=== PATIENT | male | born 1945 | race Caucasian/White ===

== ENCOUNTER → 2022-11-23 11:05 | Outpatient (CLI) | payer MEDICARE, SELFPAY ==
[2022-11-23 11:56] LABS: Basophils % 0.5 % (0.1-2.0); Eosinophils # 0.5 K/mm3 (0.0-0.4); Hematocrit 49.4 % (42.0-52.0); Hemoglobin 15.8 g/dL (14.1-18.0); Lymphocytes # 2.2 K/mm3 (0.7-4.5); Lymphocytes % 27.5 % (10-50); Mean Corpuscular HGB Conc 31.9 g/dL (31.8-35.4); Mean Corpuscular Hemoglobin 31.2 pg (27.0-31.2); Mean Corpuscular Volume 97.8 fl (80-94); Mean Platelet Volume 8.7 fl (7.4-10.4); Monocytes # 0.5 K/mm3 (0.1-1.0); Monocytes % 6.5 % (1.7-9.3); Neutrophils # 4.9 K/mm3 (1.8-7.8); Neutrophils % 59.6 % (37.0-80.0); Platelet Count 253 K/mm3 (142-424); Red Blood Count 5.05 M/mm3 (4.60-6.20); Red Cell Distribution Width 13.9 % (11.5-17.5); White Blood Count 8.2 K/mm3 (4.8-10.8)
[2022-11-23 12:17] LABS: Alanine Aminotransferase 16 U/L (12-78); Albumin Level 4.1 g/dl (3.5-5.0); Albumin/Globulin Ratio 1.6 (1.1-1.8); Alkaline Phosphatase 86 U/L (38-126); Anion Gap 9.7 mEq/L (5-15); Aspartate Amino Transferase 25 U/L (17-59); Bilirubin,Total 0.8 mg/dl (0.2-1.3); Blood Urea Nitrogen 22 mg/dl (9-20); Calcium 9.5 mg/dl (8.4-10.2); Carbon Dioxide 28 mmol/L (22.0-30.0); Chloride 105 mmol/L (98-107); Chol/HDL Ratio 3.6 (1-3.5); Cholesterol 265 mg/dl (140-200); Estimated Glomerular Filt Rate 72 ml/min (>60); GFR (African American) 87 ML/MIN (>60); Globulin 2.6 g/dL (1.3-3.2); Glucose 104 mg/dl (74-100); HDL Cholesterol 74 mg/dl (40-60); Potassium 4.7 mmoL/L (3.5-5.1); Sodium 138 mmol/L (136-145); Total Protein,Serum 6.7 g/dl (6.3-8.2); Triglycerides 81 mg/dl (30-150); VLDL Cholesterol 16 mg/dL (0-40)
[2022-11-23 12:29] LABS: Direct LDL Cholesterol 151.59 mg/dL (100-129)
[2022-11-23 12:34] LABS: 25-OH Vitamin D, Total 29.9 ng/mL (30-100)
[2022-11-23 12:48] LABS: Thyroid Stimulating Hormone 2.01 uIU/mL (0.465-4.68)
[2022-11-23 13:07] LABS: Vitamin B12 246 pg/mL (239-931)
[2022-11-23 16:10] LABS: Folate 8.07 ng/mL
[2022-11-23 21:38] LABS: Hemoglobin A1C 5.7 % (4.0-6.0)
[2022-11-24 12:46] LABS: PSA, Free 0.52 ng/mL
== END ==
PROVIDERS: PCP Physician Assistant; Visit Provider Physician Assistant
DX: Z00.00 Encounter for general adult medical examination without abnormal findings (principal); R41.3 Other amnesia; R32 Unspecified urinary incontinence; E55.9 Vitamin D deficiency, unspecified; R73.09 Other abnormal glucose; E78.00 Pure hypercholesterolemia, unspecified
CPT/HCPCS: 36415; 80053; 80061; 82306; 82607; 82746; 83036; 84153; 84154; 84443; 85025

== ENCOUNTER → 2022-12-04 14:18 | Outpatient (CLI) | payer MEDICARE, SELFPAY ==
--- NOTE | 2022-12-04 14:21 | MR_ITS ---
FINAL REPORT TECHNIQUE: Multiplanar and multisequence imaging of the brain was obtained without contrast. CLINICAL HISTORY: MEMORY LOSS comes and goes x 6 months COMPARISON: None FINDINGS: There is global atrophy. There is no mass effect or midline shift. Small foci of periventricular and subcortical white matter are nonspecific. The ventricles are symmetric without hydrocephalus. The cerebellum and brainstem have an unremarkable appearance. There are no areas of restricted diffusion on diffusion weighted images to suggest acute infarct. Soft tissues are without acute abnormality. IMPRESSION: No acute intracranial abnormality. Nonspecific T2 abnormality within the periventricular and subcortical white matter. Differential considerations include changes of chronic small vessel ischemia and demyelinating disease. Reviewed, Interpreted and Dictated by Deya Khoury MD Transcribed by Shweta Brandon Authenticated and [facility]
--- NOTE | 2022-12-04 15:00 | CT_ITS ---
FINAL REPORT TECHNIQUE: Axial images were obtained from the lung apex to the mid abdomen by computed tomography. This study was performed with techniques to keep radiation doses as low as reasonably achievable (ALARA). Individualized dose reduction techniques using automated exposure control or adjustment of mA and/or kV according to the patient's size were employed. CLINICAL HISTORY: LUNG SCREENING SMOKES 1 PK PER DAY X 50 YRS CAD FINDINGS: CHEST CT LOW DOSE CTDI vol (mGy): 2.90 DLP (mGy-cm): 123.76 There is no axillary adenopathy. There is no hilar or mediastinal adenopathy. The heart is normal in size. There is no pericardial or pleural effusion. Lung window images demonstrate no suspicious infiltrate or nodule. Note is made of emphysema. Limited images of the upper abdomen there is a hypodense small left renal lesion. There are bilateral nonobstructing renal stones. IMPRESSION: Lung RADS category 1 S. Recommend 12 month follow-up low-dose chest CT. Modifier S: Small left renal lesion and bilateral renal stones. Reviewed, Interpreted and Dictated by Deya Khoury MD Transcribed by Lauren Hanna Authenticated and [facility]
== END ==
PROVIDERS: PCP Physician Assistant; Visit Provider Physician Assistant
DX: Z87.891 Personal history of nicotine dependence (principal); Z12.2 Encounter for screening for malignant neoplasm of respiratory organs; R41.3 Other amnesia
CPT/HCPCS: 70551; 71271

== ENCOUNTER → 2022-12-29 09:49 | Outpatient (CLI) | payer MEDICARE, SELFPAY ==
--- NOTE | 2022-12-29 09:52 | CT_ITS ---
FINAL REPORT CLINICAL HISTORY: LEFT RENAL MASS COMPARISON: Prior CT of 12/04/2022 FINDINGS: CT OF THE ABDOMEN AND PELVIS WITH CONTRAST Axial CT images of the abdomen and pelvis were obtained after the administration of IV contrast. Coronal and sagittal reformatted images were also obtained and reviewed. This study was performed with techniques to keep radiation doses as low as reasonably achievable (ALARA). Individualized dose reduction techniques using automated exposure control or adjustment of mA and/or kV according to the patient's size were employed. Abdomen: Moderate changes of emphysema are present. There is mild scarring in the lung bases.. The heart is normal in size. The liver has an unremarkable appearance, without evidence of mass or biliary ductal dilatation. The gallbladder has been surgically resected. The spleen is unremarkable. No adrenal mass is present. The pancreas has an unremarkable appearance. There are small nonobstructing bilateral renal stones seen. There are bilateral renal masses, largest on the right measuring 36 mm, largest on the left measuring 18 mm, most consistent in appearance with simple cysts. No evidence of hydronephrosis is seen. Moderate vascular calcifications are present. There is no free fluid or adenopathy. No mass or abnormal fluid collection is seen. Pelvis: The appendix is not well-visualized. The urinary bladder is unremarkable. No inflammatory process is seen. There is no evidence of mass or adenopathy. There is no evidence of bowel obstruction. There is severe sigmoid diverticulosis present without evidence of acute inflammation. There is a moderate to large stool burden. IMPRESSION: Bilateral nonobstructing renal stones. There are also bilateral renal cysts, the largest on the right side measuring 36 mm in size. Diverticulosis of the sigmoid colon with a moderate to large stool burden. Reviewed, Interpreted and Dictated by Claude Washington III, MD Transcribed by Shweta Brandon Authenticated and [facility]
== END ==
PROVIDERS: PCP Physician Assistant; Visit Provider Physician Assistant
DX: N28.89 Other specified disorders of kidney and ureter (principal)
CPT/HCPCS: 74177; Q9967

== ENCOUNTER 2023-03-26 10:04 | Day surgery (SDC) | payer MEDICARE, SELFPAY ==
[2023-03-26] VITALS (7 sets, daily range): BP systolic 94–151; BP diastolic 64–90; PULSE 62–73; RESP 14–18; TEMP 36.3–36.8; O2SAT 93–95; BMI 20.7
--- NOTE | 2023-03-26 11:10 | P.PNANES_ITS ---
[facility] Disclaimer: The information contained in this section may have been updated after the patient was seen, as this information can be updated by other users. Medical History (Updated 03/26/23 @ 10:43 by Amna Kelley RN) History of heart attack Loss of vision Surgical History (Updated 03/26/23 @ 10:43 by Amna Kelley RN) History of back surgery History of coronary artery stent placement Family History (Updated 03/26/23 @ 10:43 by Amna Kelley RN) Other Family history of diabetes mellitus type II Family history of myocardial infarction Social History (Updated 03/26/23 @ 10:43 by Amna Kelley RN) Smoking Status: Current every day smoker alcohol intake: never substance use type: denies use current occupational status: retired Travel in the last 8 weeks: None caregiver/support person: Yes household members: spouse housing: house lives independently: Yes marital status: [facility] Anesthesia Checklist Patient Identification Patient Identification: Arm Band Structural Data Admitted From: Home Planned Operative Procedure/s: Colonoscopy Consent for Planned Operative Procedure(s) Verified: Yes Verified Documents: Surgical Consent and History and Physical NPO Status Verified Time NPO: 00:00 Additional verifications Anesthesia Reactions: No Airway Assessment Mallampati Score:: Class II C-Spine Mobility Assessed: Yes TMJ Mobility Assessed: Yes Dentition: Good Dentition Neurological Assessment Level of Consciousness: Awake and Alert Anesthesia Plan Anesthesia Risk discussed: Yes Anesthesia Plan: Verified ASA Class: III Anesthesia Type: MAC
--- NOTE | 2023-03-26 13:13 | P.PCN_ITS ---
Procedure: Date: 03/26/23 Patient Date of :: 1945 Procedure Performed:: Total colonoscopy with polypectomy using snare and biopsy forceps Indications:: Patient is a 77-year-old male. He is somewhat of a poor historian. He was scheduled for screening colonoscopy. Performing Provider:: Claude Gilbert MD Referring Provider:: Priyank Vallejo MD Sedation:: MAC sedation Procedure:: Patient history was obtained and appropriate physical examination was performed. Patient's medications and allergies were reviewed. Informed consent was obtained after explaining the benefits, alternatives, and risks of the procedure including, but not limited to, bleeding, perforation, missed lesions, and adverse reaction to anesthesia medications. Patient was transported to endoscopy procedure room. Patient was connected to monitoring devices. Throughout the procedure the patient's blood pressure, pulse, and oxygen saturations were monitored continuously. Patient identification and planned procedure were verified by the staff. Patient was positioned in lateral decubitus position. Digital anorectal exam was performed. Variable stiffness Olympus colonoscope was inserted and advanced under direct visualization to the cecum. Adequacy of the colonic preparation was noted. The colonoscope was advanced a short distance into the terminal ileum. The colonoscope was then slowly withdrawn while carefully examining the color, texture, anatomy, and integrity of the mucosoa circumferentially. Within the rectum retroflexion was performed. Colonoscope was then withdrawn. . There was some particulate liquid stool within the colon. Throughout the colon there was evidence of possible nonspecific diffuse colitis. In the cecum there were several diminutive polyps removed with cold biopsy forceps and sent as cecal polyp x3. There was a moderately large irregular flat sessile lesion. Eleview was injected circumferentially submucosally to raise the lesion. Attempt was made to remove this using the 13 mm hot snare but this was unsuccessful. It was then removed in a piecemeal fashion using 9 mm cold cutting snare. Ultimately it appeared as though the lesion had been removed in its entirety. As the colonoscope was withdrawn careful surveillance was carried out. Several biopsies were obtained differentiating right and left colon due to the findings of possible colitis. In the sigmoid colon there was appreciable sigmoid diverticulosis. . Findings:: Fair prep Possible diffuse colitis, biopsied Diminutive cecal polyp x3 Moderately large flat sessile cecal lesion Appreciable sigmoid diverticulosis Recommendations:: Follow-up colonoscopy to be pending pathology. Likely will need repeat col onoscopy in 6 to 12 months to evaluate early recurrence and complete removal of the large sessile cecal lesion. Complications:: None immediately apparent Estimated blood obtained (mL): 2 Colonoscopy Component Colonoscopy Component Was a colonoscopy performed during today's procedure?: Yes Recommended follow up colonoscopy of at least 10 years?: No If no, follow up colonoscopy recommended in ___ years?: 1 Reason for not recommending >/= 10 yr follow-up interval?: See above
--- NOTE | 2023-03-26 14:08 | EXP.ANES.I ---
[facility] Anesthesia Record Part I Anesthesia Record I Intake, IV Amount: 700 Hydration: Adequate Estimated blood loss (mL): 1 Urine output (mL): 0 Blood Products used (#): none Blood Pressure: 94/64 SaO2: 93 Pulse Rate: 73 Airway Patency: Patent Respiratory Rate: 16 Temperature: 97.4 F Patient is:: Awake, Drowsy and Stable Stable to PACU at:: 13:18
== END 2023-03-26 13:50 | disposition home or self-care (01) ==
PROVIDERS: PCP Physician Assistant; Visit Provider Surgery
PROC: 0DJD8ZZ Inspection of Lower Intestinal Tract, Via Natural or Artificial Opening Endoscopic (ICD-10-PCS; CPT 45380; principal; 2023-03-26 12:30)
DX: Z12.11 Encounter for screening for malignant neoplasm of colon (principal); K63.89 Other specified diseases of intestine; D12.0 Benign neoplasm of cecum; K57.30 Diverticulosis of large intestine without perforation or abscess without bleeding
CPT/HCPCS: 45380; 45385; 88305

== ENCOUNTER 2023-12-11 12:45 | Emergency (ER) | payer MEDICARE, SELFPAY ==
[2023-12-11 12:46] VITALS: BP 164/101; PULSE 65; RESP 18; TEMP 36.7; O2SAT 98; BMI 21.2
--- NOTE | 2023-12-11 12:47 | ECG_ITS ---
APPROVED REPORT Exam: Resting ECG HR:63 bpm ECG Measurements Heart Rate 63 AXES NJ 167 P 78 QRSd 85 QRS 73 QT 400 T 77 QTc 406 Conclusion Sinus rhythm Electronically signed by : KATHY LAI, 12/11/2023 15:22:16
[2023-12-11 12:50] VITALS: BMI 21.2
--- NOTE | 2023-12-11 12:50 | XR_ITS ---
PROCEDURE INFORMATION: Exam: XR Chest Exam date and time: 12/11/2023 1:03 PM Age: 78 years old Clinical indication: Other: Chest pain; Additional info: Cp TECHNIQUE: Imaging protocol: Radiologic exam of the chest. Views: 1 view. COMPARISON: CT LUNG SCREENING 12/04/2022 3:08 PM FINDINGS: Tubes, catheters and devices: EKG leads. Lungs: Emphysematous lungs. No consolidation. Pleural spaces: Unremarkable. No pleural effusion. No pneumothorax. Heart/Mediastinum: Unremarkable. No cardiomegaly. Vasculature: Ectatic aorta. Atherosclerosis. Bones/joints: Degenerative changes of the spine. IMPRESSION: No acute findings.
--- NOTE | 2023-12-11 12:55 | PC.NURSE ---
Dr. Ross at bedside
[2023-12-11 12:59] LABS: Basophils # 0.1 K/mm3 (0-0.2); Basophils % 1.1 % (0.1-2.0); Eosinophils # 0.3 K/mm3 (0.0-0.4); Eosinophils % 4.4 % (0.1-12.0); Hematocrit 46.3 % (42.0-52.0); Hemoglobin 16.4 g/dL (14.1-18.0); Lymphocytes # 2.5 K/mm3 (0.7-4.5); Lymphocytes % 32.9 % (10-50); Mean Corpuscular HGB Conc 35.4 g/dL (31.8-35.4); Mean Corpuscular Hemoglobin 36.7 pg (27.0-31.2); Mean Corpuscular Volume 103.8 fl (80-94); Mean Platelet Volume 8.8 fl (7.4-10.4); Monocytes # 0.5 K/mm3 (0.1-1.0); Monocytes % 5.8 % (1.7-9.3); Neutrophils # 4.3 K/mm3 (1.8-7.8); Neutrophils % 55.9 % (37.0-80.0); Platelet Count 221 K/mm3 (142-424); Red Blood Count 4.46 M/mm3 (4.60-6.20); Red Cell Distribution Width 14.4 % (11.5-17.5); White Blood Count 7.7 K/mm3 (4.8-10.8)
[2023-12-11 13:05] LABS: Albumin Level 4.1 g/dl (3.5-5.0); Chloride 108 mmol/L (98-107); Potassium 4.5 mmoL/L (3.5-5.1); Sodium 142 mmol/L (136-145)
[2023-12-11 13:07] LABS: Activated Partial Thrombo Time 27.3 seconds (22.8-30.6); Alanine Aminotransferase 17 U/L (12-78); Aspartate Amino Transferase 33 U/L (17-59); Blood Urea Nitrogen 21 mg/dl (9-20); Creatinine Clearance Estimated 54 mL/min (50-200); Estimated Glomerular Filt Rate 81 ml/min (>60); GFR (African American) 98 ML/MIN (>60)
--- NOTE | 2023-12-11 13:07 | ED_ITS ---
Discharge Plan Disposition Patient Disposition: Home, Self-Care Condition: Good Chief Complaint: Chest Pain Prescriptions Prescriptions: No Action aspirin [Aspir-81] 81 mg Tablet,Delayed Release (Dr/Ec) 81 mg PO DAILY coenzyme Q10 [CoQ-10] 100 mg Capsule 100 mg PO DAILY memantine [Namenda] 5 mg Tablet 5 mg PO HS Referrals Follow up/Referrals: Sid Becker MD [Staff Physician] - See instructions Priyank Vallejo MD [Primary Care Provider] - See instructions Activity Restrictions/Add. Instructions Additional Instructions/Restrictions: Call your family doctor to establish care for this visit to the emergency department and schedule follow-up within 48 hours to ensure improvement. If you have any worsening of your condition or any other concerning signs or symptoms, return to the emergency department or your primary care doctor for further evaluation. Contact cardiology to schedule appointment for follow-up for further workup. Clinical Impressions Clinical Impression: Chest pain Instructions Patient Instructions: DI for Atypical Chest Pain Print Language Print Language: Cypriot Discharge ED Provider: Mya Russell HPI <Joel Ross MD - Last Filed: 12/11/23 14:29> General Chief Complaint: Chest Pain Stated Complaint: chest pain Time Seen by Provider: 12/11/23 12:50 Mode of Arrival: Wheelchair Source of Information: Spouse Limitations: Altered Mental Status Description of Symptoms (Recalled from ER Triage Doc. by RN): chest pain. pt has alzheimers. denies pain now History of Present Illness HPI narrative: Please note that above description of symptoms, in this electronic medical record under categorization of recalled from ER triage doctor by RN are reflective of an initial nursing assessment, however, is not reflective of my full history and physical exam that was personally taken and clarified. Consequentially, this preceding description of symptoms, which may include the patient's categorized chief complaint in the EMR, do not reflect my personal clinical impression, and the ultimate description of history of present illness and patient stated complaints should be deferred to this section of the note. Unless stated otherwise or congruent with this section of the note, additional signs, symptoms, or incongruence should be interpreted as inaccurate with my clinical impression. Related Data Home Medications ?Medication ?Instructions ?Recorded ?Confirmed aspirin 81 mg tablet,delayed 81 mg PO DAILY Blood Thinner 03/26/23 04/06/23 release coenzyme Q10 100 mg capsule 100 mg PO DAILY Supplement 03/26/23 04/06/23 (CoQ-10) memantine 5 mg tablet (Namenda) 5 mg PO HS memory 03/26/23 04/06/23 Allergies Allergy/AdvReac Type Severity Reaction Status Date / Time No Known Allergies Allergy Verified 04/06/23 11:20 PFS <Joel Ross MD - Last Filed: 12/11/23 14:29> PFS Disclaimer: The information contained in this section may have been updated after the patient was seen, as this information can be updated by other users. Medical History (Updated 12/11/23 @ 14:28 by Joel Ross MD) History of heart attack Loss of vision Surgical History (Updated 04/06/23 @ 11:21 by DINAH Torres) History of colonoscopy History of back surgery History of coronary artery stent placement Family History Other Family history of diabetes mellitus type II Family history of myocardial infarction Social History Smoking Status: Current every day smoker alcohol intake: never substance use type: denies use current occupational status: retired Travel in the last 8 weeks: None caregiver/support person: Yes household members: spouse housing: house lives independently: Yes marital status: <Joel Ross MD - Last Filed: 12/11/23 14:29> ROS Obtained: Yes All systems reviewed & no additional complaints except as documented Physical Exam <Joel Ross MD - Last Filed: 12/11/23 14:29> General General appearance: alert Neck Neck exam: Present trachea midline Chest Chest inspection: Present normal inspection and symmetric chest wall rise Respiratory Respiratory exam: Present normal lung sounds bilaterally; Absent respiratory distress, wheezes, stridor, accessory muscle use or prolonged expiratory phase Cardiovascular Cardiovascular exam: Present regular rate, normal rhythm and other (Pulses equal and symmetric in upper and lower extremities) Extremities Exam Extremities exam: Absent edema Neurological Exam Neurological exam: Present alert, oriented X3 and CN II-XII intact Skin Skin exam: Present warm and dry; Absent cyanosis, diaphoresis or pallor HEART Score <Joel Ross MD - Last Filed: 12/11/23 14:29> HEART Score HEART Score assessment performed?: Yes History (anamnesis): Moderately suspicious ECG: Normal Age: >65 years Risk factors: 1-2 risk factors Troponin: </= normal limit HEART Score: 4 <Mya Russell MD - Last Filed: 12/11/23 16:44> HEART Score HEART Score: 4 Critical Care <Joel Ross MD - Last Filed: 12/11/23 14:29> Critical Care Time Critical Care Time: No Medical Decision Making <Joel Ross MD - Last Filed: 12/11/23 14:29> Medical Records Medical records reviewed: Yes I reviewed the patient's medical records. José Miguel Inquiry Pt receiving controlled substance: No José Miguel was queried for this patient: No Vital Signs Vital Signs: 12/11/23 12:46 12/11/23 13:52 12/11/23 15:00 Temperature 98.1 F Temperature Source Oral Pulse Rate 60 62 Pulse Rate [Right] 65 Respiratory Rate 18 17 21 Blood Pressure 154/89 H 159/100 H Blood Pressure [Right Arm] 164/101 H Blood Pressure Mean [Right Arm] 122 02 Sat by Pulse Oximetry 98 97 97 Oxygen Delivery Method Room Air 12/11/23 15:31 12/11/23 16:00 Temperature Temperature Source Pulse Rate 58 L Pulse Rate [Right] Respiratory Rate 16 16 Blood Pressure 187/96 H 170/93 H Blood Pressure [Right Arm] Blood Pressure Mean [Right Arm] 02 Sat by Pulse Oximetry 99 99 Oxygen Delivery Method Room Air Lab Data Labs: Lab Results 12/11/23 12:49: WBC 7.7, RBC 4.46 L, Hgb 16.4, Hct 46.3, MCV 103.8 H, MCH 36.7 H , MCHC 35.4, RDW 14.4, Plt Count 221, MPV 8.8, Neut % (Auto) 55.9, Lymph % (Auto) 32.9, Yancey % (Auto) 5.8, Eos % (Auto) 4.4, Baso % (Auto) 1.1, Neut # (Auto) 4.3, Lymph # (Auto) 2.5, Yancey # (Auto) 0.5, Eos # (Auto) 0.3, Baso # (Auto) 0.1, APTT 27.3, Sodium 142, Potassium 4.5, Chloride 108 H, Carbon Dioxide 31 H, Anion Gap 7.5, BUN 21 H, Creatinine 0.90, Estimated Creat Clear 54, Estimated GFR 81, Est GFR ( Amer) 98, Glucose 111 H, Calcium 9.3, Total Bilirubin 0.7, AST 33, ALT 17, Alkaline Phosphatase 64, Troponin I < 0.01, NT-Pro-B Natriuret Pep 337, Total Protein 7.0, Albumin 4.1, Globulin 2.9, Albumin/Globulin Ratio 1.4, Lipase 33 12/11/23 15:30: Troponin I < 0.01 12/11/23 12:49 12/11/23 12:49 Response Orders (Tests/Meds): ED MEDICATIONS Generic Name Dose Route Start Last Admin Trade Name Freq PRN Reason Stop Dose Admin Nitroglycerin 0.4 mg 12/11/23 13:01 Nitroglycerin 0.4mg Sl Tablet SL 01/10/24 13:00 Q5MINP PRN Chest Pain Sodium Chloride 8 ml 12/11/23 12:51 Sodium Chloride 0.9% 10ml Vial IV 01/10/24 12:50 NEEDED PRN dilute pepcid Discontinued Medications Generic Name Dose Route Start Last Admin Trade Name Freq PRN Reason Stop Dose Admin Aspirin 325 mg 12/11/23 12:51 12/11/23 13:22 Aspirin 325mg Tablet PO 12/11/23 12:52 325 mg ONCE ONE Administration Famotidine 20 mg 12/11/23 12:51 12/11/23 13:22 Famotidine 20mg/2ml Vial IV 12/11/23 12:52 20 mg ONCE ONE Administration Lactated Ringer's 500 mls @ 500 mls/hr 12/11/23 12:52 12/11/23 13:22 Lactated Ringer's 500ml IV 12/11/23 13:51 500 mls/hr .Q1H ONE Administration Ketorolac Tromethamine 15 mg 12/11/23 12:51 12/11/23 13:22 Ketorolac 30mg/Ml Vial IV 12/11/23 12:52 15 mg ONCE ONE Administration Prochlorperazine Edisylate 10 mg 12/11/23 12:51 12/11/23 13:22 Prochlorperazine 10mg/2ml Vial IV 12/11/23 12:52 10 mg ONCE ONE Administration ORDERS Category Date Time Status XR chest portable Stat Exams 07/27/24 12:50 Completed Complete Blood Count Auto Diff Stat Lab 12/11/23 12:49 Completed Comprehensive Metabolic Panel Stat Lab 12/11/23 12:49 Completed Lipase Stat Lab 12/11/23 12:49 Completed NT Pro Brain Natriuretic Pep. Stat Lab 12/11/23 12:49 Completed PTT [Activated Partial Thrombo Time] Stat Lab 12/11/23 12:49 Completed Troponin I Q3H Lab 12/11/23 15:30 Completed Troponin I Q3H Lab 12/11/23 19:00 Ordered Troponin I Stat Lab 12/11/23 12:49 Completed 12-lead EKG Request [ECG Request] Stat Y 12/11/23 12:51 Ordered MDM Narrative Medical Decision Narrative: 78-year-old male history of dementia, ACS, VA status post stenting currently on daily aspirin presenting with chest pain. Patient states that this felt similar to his previous heart attack, but felt lower in his chest. Chest pains are about 30 minutes prior to arrival while he was sitting still at rest. Radiated from his substernal area to the left side of his chest. No shortness of breath, nausea, vomiting, diaphoresis, neurologic deficits, or any other concerns. By the time he arrived to the emergency department, states that pain is almost entirely gone, but still there. History was obtained via conversation with patient and family. On arrival, patient hemodynamically stable, alert, oriented x4, appropriate, GCS 15, moving all extremities spontaneously, pupils equal and reactive to light. Full physical exam performed and significant for very well- appearing male who is in no acute distress. He is hypertensive, nontachycardic. Lungs are clear to auscultation bilaterally, cardiac exam without murmurs, gallops, rubs. No lower extremity edema. Pulses equal and symmetric in upper and lower extremities. Differential includes ACS, VA, pneumothorax, GERD, esophagitis, hypertensive urgency versus emergency, among others. Patient was given aspirin, Toradol, Pepcid, nitroglycerin for symptomatic management and correction of underlying abnormalities. Patient placed on continuous cardiac monitoring and continuous pulse ox with initial blood pressure 164/101, heart rate 65, saturation 98% on room air. Independent interpretation of EKG shows sinus rhythm 63 beats a minute without ST or T wave changes concerning for acute ischemia. NC 167, QRS 65, QTc 4 6. Workup independently interpreted and significant for nonactionable CBC or chemistry. Coags normal. Patient's initial troponin undetectably low and BNP negative. Chest x-ray without acute cardiopulmonary space disease on independent interpretation. See radiology read for full review of final results. Heart score 4. Patient was placed in observation beginning at 1 PM in order to rule out evolving VA with delta troponin given acuity of symptoms and determine need for admission versus home-going. The patient was provided serial exams, medications, cardiac monitoring while awaiting results. Prior to results of final troponin, care handed off to oncoming physician. Lawn Sprinkler Servicer disclaimer Much of this encounter note is an electronic wood shingle roofer spoken language to printed text. Electronic wood shingle roofer of the spoken language may permit errors. Although I have reviewed the note, some errors may still exist. <Mya Russell MD - Last Filed: 12/11/23 16:44> Vital Signs Vital Signs: 12/11/23 12:46 12/11/23 13:52 12/11/23 15:00 Temperature 98.1 F Temperature Source Oral Pulse Rate 60 62 Pulse Rate [Right] 65 Respiratory Rate 18 17 21 Blood Pressure 154/89 H 159/100 H Blood Pressure [Right Arm] 164/101 H Blood Pressure Mean [Right Arm] 122 02 Sat by Pulse Oximetry 98 97 97 Oxygen Delivery Method Room Air 12/11/23 15:31 12/11/23 16:00 Temperature Temperature Source Pulse Rate 58 L Pulse Rate [Right] Respiratory Rate 16 16 Blood Pressure 187/96 H 170/93 H Blood Pressure [Right Arm] Blood Pressure Mean [Right Arm] 02 Sat by Pulse Oximetry 99 99 Oxygen Delivery Method Room Air Lab Data Lab results reviewed: Yes I reviewed the patient's lab results. Labs: Lab Results 12/11/23 12:49: WBC 7.7, RBC 4.46 L, Hgb 16.4, Hct 46.3, MCV 103.8 H, MCH 36.7 H , MCHC 35.4, RDW 14.4, Plt Count 221, MPV 8.8, Neut % (Auto) 55.9, Lymph % (Auto) 32.9, Yancey % (Auto) 5.8, Eos % (Auto) 4.4, Baso % (Auto) 1.1, Neut # (Auto) 4.3, Lymph # (Auto) 2.5, Yancey # (Auto) 0.5, Eos # (Auto) 0.3, Baso # (Auto) 0.1, APTT 27.3, Sodium 142, Potassium 4.5, Chloride 108 H, Carbon Dioxide 31 H, Anion Gap 7.5, BUN 21 H, Creatinine 0.90, Estimated Creat Clear 54, Estimated GFR 81, Est GFR ( Amer) 98, Glucose 111 H, Calcium 9.3, Total Bilirubin 0.7, AST 33, ALT 17, Alkaline Phosphatase 64, Troponin I < 0.01, NT-Pro-B Natriuret Pep 337, Total Protein 7.0, Albumin 4.1, Globulin 2.9, Albumin/Globulin Ratio 1.4, Lipase 33 12/11/23 15:30: Troponin I < 0.01 Response Orders (Tests/Meds): ED MEDICATIONS Generic Name Dose Route Start Last Admin Trade Name Freq PRN Reason Stop Dose Admin Nitroglycerin 0.4 mg 12/11/23 13:01 Nitroglycerin 0.4mg Sl Tablet SL 01/10/24 13:00 Q5MINP PRN Chest Pain Sodium Chloride 8 ml 12/11/23 12:51 Sodium Chloride 0.9% 10ml Vial IV 01/10/24 12:50 NEEDED PRN dilute pepcid Discontinued Medications Generic Name Dose Route Start Last Admin Trade Name Freq PRN Reason Stop Dose Admin Aspirin 325 mg 12/11/23 12:51 12/11/23 13:22 Aspirin 325mg Tablet PO 12/11/23 12:52 325 mg ONCE ONE Administration Famotidine 20 mg 12/11/23 12:51 12/11/23 13:22 Famotidine 20mg/2ml Vial IV 12/11/23 12:52 20 mg ONCE ONE Administration Lactated Ringer's 500 mls @ 500 mls/hr 12/11/23 12:52 12/11/23 13:22 Lactated Ringer's 500ml IV 12/11/23 13:51 500 mls/hr .Q1H ONE Administration Ketorolac Tromethamine 15 mg 12/11/23 12:51 12/11/23 13:22 Ketorolac 30mg/Ml Vial IV 12/11/23 12:52 15 mg ONCE ONE Administration Prochlorperazine Edisylate 10 mg 12/11/23 12:51 12/11/23 13:22 Prochlorperazine 10mg/2ml Vial IV 12/11/23 12:52 10 mg ONCE ONE Administration ORDERS Category Date Time Status XR chest portable Stat Exams 12/11/23 12:50 Completed Complete Blood Count Auto Diff Stat Lab 12/11/23 12:49 Completed Comprehensive Metabolic Panel Stat Lab 12/11/23 12:49 Completed Lipase Stat Lab 12/11/23 12:49 Completed NT Pro Brain Natriuretic Pep. Stat Lab 12/11/23 12:49 Completed PTT [Activated Partial Thrombo Time] Stat Lab 12/11/23 12:49 Completed Troponin I Q3H Lab 12/11/23 15:30 Completed Troponin I Q3H Lab 12/11/23 19:00 Ordered Troponin I Stat Lab 12/11/23 12:49 Completed 12-lead EKG Request [ECG Request] Stat Y 12/11/23 12:51 Ordered MDM Narrative Medical Decision Narrative: 78-year-old male history of dementia, ACS, VA status post stenting currently on daily aspirin presenting with chest pain. Patient states that this felt similar to his previous heart attack, but felt lower in his chest. Chest pains are about 30 minutes prior to arrival while he was sitting still at rest. Radiated from his substernal area to the left side of his chest. No shortness of breath, nausea, vomiting, diaphoresis, neurologic deficits, or any other concerns. By the time he arrived to the emergency department, states that pain is almost entirely gone, but still there. History was obtained via conversation with patient and family. On arrival, patient hemodynamically stable, alert, oriented x4, appropriate, GCS 15, moving all extremities spontaneously, pupils equal and reactive to light. Full physical exam performed and significant for very well- appearing male who is in no acute distress. He is hypertensive, nontachycardic. Lungs are clear to auscultation bilaterally, cardiac exam without murmurs, gallops, rubs. No lower extremity edema. Pulses equal and symmetric in upper and lower extremities. Differential includes ACS, VA, pneumothorax, GERD, esophagitis, hypertensive urgency versus emergency, among others. Patient was given aspirin, Toradol, Pepcid, nitroglycerin for symptomatic management and correction of underlying abnormalities. Patient placed on continuous cardiac monitoring and continuous pulse ox with initial blood pressure 164/101, heart rate 65, saturation 98% on room air. Independent interpretation of EKG shows sinus rhythm 63 beats a minute without ST or T wave changes concerning for acute ischemia. NC 167, QRS 65, QTc 4 6. Workup independently interpreted and significant for nonactionable CBC or chemistry. Coags normal. Patient's initial troponin undetectably low and BNP negative. Chest x-ray without acute cardiopulmonary space disease on independent interpretation. See radiology read for full review of final results. Heart score 4. Patient was placed in observation beginning at 1 PM in order to rule out evolving VA with delta troponin given acuity of symptoms and determine need for admission versus home-going. The patient was provided serial exams, medications, cardiac monitoring while awaiting results. Prior to results of final troponin, care handed off to oncoming physician. Lawn Sprinkler Servicer disclaimer Much of this encounter note is an electronic wood shingle roofer spoken language to printed text. Electronic wood shingle roofer of the spoken language may permit errors. Although I have reviewed the note, some errors may still exist. I assumed care of patient from Dr. Ross pending repeat troponin. Repeat troponin remains negative and undetectable. Patient remains asymptomatic at present. Discussed reassuring results with patient and family and recommended close follow-up with PCP and return precautions to which they are agreeable. Discharged in stable condition.
[2023-12-11 13:08] LABS: Albumin/Globulin Ratio 1.4 (1.1-1.8); Alkaline Phosphatase 64 U/L (38-126); Anion Gap 7.5 mEq/L (5-15); Bilirubin,Total 0.7 mg/dl (0.2-1.3); Calcium 9.3 mg/dl (8.4-10.2); Carbon Dioxide 31 mmol/L (22.0-30.0); Globulin 2.9 g/dL (1.3-3.2); Glucose 111 mg/dl (74-100); Lipase 33 U/L (23-300)
--- NOTE | 2023-12-11 13:10 | PC.NURSE ---
Rad at bedside for x-ray
[2023-12-11 13:17] LABS: NT Pro Brain Natriuretic Pep. 337 pg/mL (0-450)
[2023-12-11 13:21] LABS: Troponin I < 0.01 ng/ml (0.00-0.034)
[2023-12-11] MEDS: KETOROLAC 30MG/ML VIAL 15 MG IV (13:22)
[2023-12-11] MEDS: RINGERS SOLUTION,LACTATED 500 ML IV (13:22)
[2023-12-11] MEDS: ASPIRIN 325MG TABLET 325 MG PO (13:22)
[2023-12-11] MEDS: FAMOTIDINE 20MG/2ML VIAL 20 MG IV (13:22)
[2023-12-11] MEDS: PROCHLORPERAZINE 10MG/2ML VIAL 10 MG IV (13:22)
[2023-12-11 13:52] VITALS: BP 154/89; PULSE 60; RESP 17; O2SAT 97
--- NOTE | 2023-12-11 14:29 | PC.NURSE ---
Dr. Ross at bedside
[2023-12-11 15:00] VITALS: BP 159/100; PULSE 62; RESP 21; O2SAT 97
[2023-12-11 15:31] VITALS: BP 187/96; PULSE 58; RESP 16; O2SAT 99
[2023-12-11 16:00] VITALS: BP 170/93; RESP 16; O2SAT 99
[2023-12-11 16:40] LABS: Troponin I < 0.01 ng/ml (0.00-0.034)
[2023-12-11 16:45] VITALS: BP 170/93; PULSE 60; RESP 18; TEMP 36.8; O2SAT 99
== END 2023-12-11 16:50 | disposition home or self-care (01) ==
PROVIDERS: Emergency Medicine; Emergency Provider Emergency Medicine; PCP Internal Medicine Adolescent Medicine
DX: R07.9 Chest pain, unspecified (principal); F03.90 Unspecified dementia, unspecified severity, without behavioral disturbance, psychotic disturbance, mood disturbance, and anxiety; Z86.79 Personal history of other diseases of the circulatory system
CPT/HCPCS: 71045; 80053; 83690; 83880; 84484; 85025; 85730; 93005; 96361; 96374; 96375; 99284; J0780; J1885; J7120; S0028

== ENCOUNTER 2025-03-11 10:07 | Inpatient (IN) | payer MEDICARE, SELFPAY ==
[2025-03-11] VITALS (23 sets, daily range): BP systolic 123–194; BP diastolic 87–127; PULSE 58–110; RESP 14–20; TEMP 36.6–36.7; O2SAT 96–100; BMI 19.3; BMI 19.1
--- NOTE | 2025-03-11 10:17 | XR_ITS ---
PROCEDURE INFORMATION: Exam: XR Chest Exam date and time: 03/11/2025 11:37 AM Age: 79 years old Clinical indication: Other: Chest pain TECHNIQUE: Imaging protocol: Radiologic exam of the chest. Views: 1 view. COMPARISON: CR XR CHEST PORTABLE 12/11/2023 1:03 PM FINDINGS: Lungs: Hyperexpanded lung obando consistent with COPD. Stable atelectasis in the left base No consolidation. Pleural spaces: Unremarkable. No pleural effusion. No pneumothorax. Heart/Mediastinum: Unremarkable. No cardiomegaly. Bones/joints: Unremarkable. IMPRESSION: No acute findings.
--- NOTE | 2025-03-11 10:17 | CT_ITS ---
PROCEDURE INFORMATION: Exam: CT Abdomen And Pelvis With Contrast Exam date and time: 03/11/2025 11:24 AM Age: 79 years old Clinical indication: Abdominal pain; Additional info: Constipation x7d, diffuse abdominal pain TECHNIQUE: Imaging protocol: Computed tomography of the abdomen and pelvis with contrast. Radiation optimization: All CT scans at this facility use at least one of these dose optimization techniques: automated exposure control; mA and/or kV adjustment per patient size (includes targeted exams where dose is matched to clinical indication); or iterative reconstruction. Contrast material: ISOVUE; Contrast volume: 75 ml; Contrast route: IV; COMPARISON: CT ABDOMEN PELVIS W CON 12/29/2022 10:19 AM FINDINGS: Lungs: Opacities in the left base may represent atelectasis or pneumonia. Liver: Normal. No mass. Gallbladder and biliary ducts: Cholecystectomy Pancreas: Pancreatic atrophy Spleen: Normal. No splenomegaly. Adrenal glands: Normal. No mass. Kidneys and ureters: 6.2 mm calculus in the distal right ureter. Series 3, image 97. No significant dilatation of the distal ureter. 2.4 cm simple cyst posterior left kidney. 18 mm simple cyst medial left kidney. 3.3 cm simple cyst right kidney. 1.3 cm simple cyst upper pole right kidney . No follow-up imaging recommended . Stomach and bowel: Diverticulosis of the rectosigmoid. No diverticulitis. Constipation throughout the colon Appendix: No evidence of appendicitis. Intraperitoneal space: Unremarkable. No free air. No significant fluid collection. Vasculature: Unremarkable. No abdominal aortic aneurysm. Lymph nodes: Unremarkable. No enlarged lymph nodes. Urinary bladder: Unremarkable as visualized. Reproductive: The prostate is enlarged, greater than 5 cm. Recommend urology consult. Bones/joints: Unremarkable. No acute fracture. Soft tissues: Unremarkable. IMPRESSION: 1. 6.2 mm calculus in the distal right ureter. Series 3, image 97. No significant dilatation of the distal ureter. 2. Opacities in the left base may represent atelectasis or pneumonia. 3. The prostate is enlarged, greater than 5 cm. Recommend urology consult. COMMENTS: Consistent with the [employer]'s Incidental Findings Committee white paper (J [employer]am Radiol 2018): Any incidental renal lesion less than 1 cm or classified as too small to characterize, or any incidental cystic renal lesion characterized as simple-appearing, is likely benign. No follow-up imaging is recommended for these lesions per consensus recommendations based on imaging criteria.
--- NOTE | 2025-03-11 10:22 | ED_ITS ---
Discharge Plan Disposition Patient Disposition: Admitted Clinical Impressions Clinical Impression: NSTEMI (non-ST elevated myocardial infarction) Discharge ED Provider: Kamran Llamas HPI General Chief Complaint: Abdominal Pain Stated Complaint: abd pain Time Seen by Provider: 03/11/25 10:08 Mode of Arrival: EMS Source of Information: Patient, Relative and EMS Limitations: No Limitations History of Present Illness HPI narrative: Rod Terrazas is an 79-year-old male with a history of hypertension and Alzheimer's disease, PA status post stent, to the emergency department with family via EMS for concern for abdominal pain. Was a history is provided by daughter, who is his POA. They state that patient and his moved in with her approximately 3 weeks ago. She states that he has had significant constipation for the past 3 weeks and has only had 2 small, hard bowel movements since then. She states that he does appear somewhat scared to go to the bathroom, likely related to him being unfamiliar with her home. She states that they have been doing natural remedies at home as well as Colace x 2 without relief. She states that he often complains of abdominal pain and chest pain but it seems to be getting more frequent. She states that he is urinating normally. She denies any fevers at home. They do state that occasionally he will hold his chest and states that it hurts. She states that he has a history of a heart attack and cardiac stents. Patient is mildly confused and states that he is not in any pain currently, however he has tenderness on abdominal exam. Related Data Home Medications ?Medication ?Instructions ?Recorded ?Confirmed aspirin 81 mg tablet,delayed 81 mg PO DAILY Blood Thin ner 03/26/23 04/06/23 release coenzyme Q10 100 mg capsule 100 mg PO DAILY Supplement 03/26/23 04/06/23 (CoQ-10) memantine 5 mg tablet (Namenda) 5 mg PO HS memory 03/1704/06/23 Allergies Allergy/AdvReac Type Severity Reaction Status Date / Time No Known Allergies Allergy Verified 04/06/23 11:20 [facility] Disclaimer: The information contained in this section may have been updated after the patient was seen, as this information can be updated by other users. Medical History (Updated 03/11/25 @ 15:31 by Yaya Chu MD) Kidney stone on left side BPH (benign prostatic hyperplasia) Hypertension Alzheimer's dementia Coronary artery disease History of heart attack Surgical History History of colonoscopy History of back surgery History of coronary artery stent placement Family History Other Family history of diabetes mellitus type II Family history of myocardial infarction Social History Smoking Status: Former smoker alcohol intake: never substance use type: denies use current occupational status: retired Travel in the last 8 weeks?: None caregiver/support person: Yes household members: spouse housing: house lives independently: Yes marital status: Have you lived/traveled outside [place] in past 30 days?: No Contact w/someone who lives/traveled outside US past 30 days?: No Exposure to someone with infectious disease in past 14 days?: No Do you have a fever (greater than 100.4 F or 38 C)?: No Have you tested positive for COVID-19?: No Exposed to someone with COVID-19 in past 14 days?: No Do you have a sore throat?: No Do you have a cough?: No Do you have any weakness?: No Do you have any diarrhea?: No Are you experiencing any unusual bleeding?: No Do you have any muscle aches/pain?: No Do you have any abdominal pain?: Yes Are you experiencing loss of taste or smell?: No Other Medical History Have you received the Pneumonia Vaccine: No ROS Obtained: Yes Systems reviewed as appropriate & no additional complaints except as documented Physical Exam General General appearance: alert and in no apparent distress Head Head exam: atraumatic Eye Eye exam: Present normal appearance ENT ENT exam: Present normal external ear exam Neck Neck exam: Present full ROM Chest Chest inspection: Present symmetric chest wall rise Respiratory Respiratory exam: Present normal lung sounds bilaterally; Absent respiratory distress, wheezes or stridor Cardiovascular Cardiovascular exam: Present regular rate and normal rhythm Abdominal Exam Abdominal exam: Present soft, distention (Mild) and tenderness (Generalized); Absent guarding or rigidity exam: Present deferred Extremities Exam Extremities exam: Present normal inspection Back Exam Back exam: Present normal inspection Neurological Exam Neurological exam: Present alert and oriented X3 Psychiatric Psychiatric exam: Present normal affect Skin Skin exam: Present warm and dry HEART Score HEART Score HEART Score assessment performed?: Yes HEART Score: 7 Critical Care Critical Care Time Critical Care Time: Yes Attestation: On 03/11/25, the high probability of a clinically significant, sudden or life threatening deterioration of the following system(s) required my full and direct attention, intervention and personal management. The time I documented below is in addition to time spent performing reported procedures but includes the following listed in this critical care notation. Total Time Total Critical Care Time: 35 Medical Decision Making José Miguel Inquiry Pt receiving controlled substance: No Vital Signs Vital Signs: 03/11/25 10:05 03/11/25 10:05 03/11/25 10:10 Temperature 97.9 F 97.9 F Temperature Source Oral Oral Pulse Rate 63 64 Pulse Rate [Right] 63 Respiratory Rate 14 14 Blood Pressure 177/110 H 182/109 H Blood Pressure [Right Arm] 177/110 H Blood Pressure Mean Blood Pressure Mean [Right Arm] 132 Blood Pressure Source Automatic Cuff Blood Pressure Source [Right Arm] Automatic Cuff Blood Pressure Position Supine Blood Pressure Position [Right Arm] Supine 02 Sat by Pulse Oximetry 99 99 98 Oxygen Delivery Method Room Air Room Air Room Air 03/11/25 10:15 03/11/25 10:30 03/11/25 10:45 Temperature Temperature Source Pulse Rate 63 63 64 Pulse Rate [Right] Respiratory Rate Blood Pressure 177/110 H 180/115 H 194/127 H Blood Pressure [Right Arm] Blood Pressure Mean Blood Pressure Mean [Right Arm] Blood Pressure Source Blood Pressure Source [Right Arm] Blood Pressure Position Blood Pressure Position [Right Arm] 02 Sat by Pulse Oximetry 97 100 99 Oxygen Delivery Method Room Air Room Air Room Air 03/11/25 11:00 03/11/25 11:15 03/11/25 11:45 Temperature Temperature Source Pulse Rate 62 61 58 L Pulse Rate [Right] Respiratory Rate Blood Pressure 185/104 H 175/109 H 156/95 H Blood Pressure [Right Arm] Blood Pressure Mean Blood Pressure Mean [Right Arm] Blood Pressure Source Blood Pressure Source [Right Arm] Blood Pressure Position Blood Pressure Position [Right Arm] 02 Sat by Pulse Oximetry 100 98 100 Oxygen Delivery Method Room Air Room Air Room Air 03/11/25 11:58 03/11/25 12:00 03/11/25 12:15 Temperature Temperature Source Pulse Rate 63 63 66 Pulse Rate [Right] Respiratory Rate Blood Pressure 177/98 H 171/108 H 164/100 H Blood Pressure [Right Arm] Blood Pressure Mean Blood Pressure Mean [Right Arm] Blood Pressure Source Blood Pressure Source [Right Arm] Blood Pressure Position Blood Pressure Position [Right Arm] 02 Sat by Pulse Oximetry 97 98 98 Oxygen Delivery Method Room Air Room Air Room Air 03/11/25 12:30 03/11/25 12:45 03/11/25 13:00 Temperature Temperature Source Pulse Rate 80 75 90 Pulse Rate [Right] Respiratory Rate Blood Pressure 123/94 H 187/107 H 148/122 H Blood Pressure [Right Arm] Blood Pressure Mean Blood Pressure Mean [Right Arm] Blood Pressure Source Blood Pressure Source [Right Arm] Blood Pressure Position Blood Pressure Position [Right Arm] 02 Sat by Pulse Oximetry 99 99 96 Oxygen Delivery Method Room Air Room Air Room Air 03/11/25 13:15 03/11/25 13:30 03/11/25 13:46 Temperature Temperature Source Pulse Rate 75 81 Pulse Rate [Right] Respiratory Rate Blood Pressure 173/106 H 185/115 H 181/105 H Blood Pressure [Right Arm] Blood Pressure Mean 128 132 130 Blood Pressure Mean [Right Arm] Blood Pressure Source Blood Pressure Source [Right Arm] Blood Pressure Position Blood Pressure Position [Right Arm] 02 Sat by Pulse Oximetry 96 98 99 Oxygen Delivery Method Room Air Room Air Room Air 03/11/25 14:10 03/11/25 14:16 Temperature 98 F Temperature Source Oral Pulse Rate 84 Pulse Rate [Right] Respiratory Rate 16 Blood Pressure 185/110 H Blood Pressure [Right Arm] Blood Pressure Mean Blood Pressure Mean [Right Arm] Blood Pressure Source Automatic Cuff Blood Pressure Source [Right Arm] Blood Pressure Position Supine Blood Pressure Position [Right Arm] 02 Sat by Pulse Oximetry Oxygen Delivery Method Room Air Room Air Lab Data Labs: Lab Results 03/11/25 10:20: WBC 7.7, RBC 5.06, Hgb 16.1, Hct 47.9, MCV 94.7 H, MCH 31.8 H, MCHC 33.6, RDW 14.0, Plt Count 354, MPV 10.7 H, Neut % (Auto) 60.1, Lymph % (Auto) 26.2, Carroll % (Auto) 7.6, Eos % (Auto) 4.7, Baso % (Auto) 1.0, Neut # (Auto) 4.7, Lymph # (Auto) 2.0, Carroll # (Auto) 0.6, Eos # (Auto) 0.4, Baso # (Auto) 0.1, PT 10.9, INR 0.98, APTT 26.0, Sodium 134 L, Potassium 4.4, Chloride 101, Carbon Dioxide 27, Anion Gap 10.4, BUN 18, Creatinine 0.90, Estimated Creat Clear 51, Estimated GFR 81, Est GFR ( Amer) 98, Glucose 111 H, Lactate 1.5, Calcium 9.2, Total Bilirubin 0.7, AST 32, ALT 20, Alkaline Phosphatase 157 H, Troponin I 0.14 H, NT-Pro-B Natriuret Pep 798 H, Total Protein 7.9, Albumin 4.2, Globulin 3.7 H, Albumin/Globulin Ratio 1.1, Lipase 22 L, HCV Ab JC w/Rflx PCR Qn Negative, HIV Ag/Ab Combo Qual Negative 03/11/25 11:58: Urine Color Yellow, Urine Appearance Clear, Urine pH 7.5, Ur Specific Ensign 1.015, Urine Protein Negative, Urine Glucose (UA) Negative, Urine Ketones Negative, Urine Blood Negative, Urine Nitrate Negative, Urine Bilirubin Negative, Urine Urobilinogen 0.2, Ur Leukocyte Esterase 1+ A, Urine RBC None, Urine WBC 3-5, Ur Squamous Epith Cells Occasional, Urine Bacteria Trace 03/11/25 13:07: Troponin I 0.89 H 03/11/25 10:20 03/11/25 10:20 Response Orders (Tests/Meds): ED MEDICATIONS Generic Name Dose Route Start Last Admin Trade Name Louisa PRN Reason Stop Dose Admin Acetaminophen 1,000 mg 03/11/25 13:53 Acetaminophen 325mg Tab PO 04/10/25 13:52 Q4HP PRN Fever or Mild Pain (1-3) Aspirin 81 mg 03/12/25 09:00 Aspirin 81mg Chewable Tablet PO 04/11/25 08:59 DAILY CY Atorvastatin Calcium 40 mg 03/11/25 21:00 03/11/25 20:41 Atorvastatin 40mg Tablet PO 04/10/25 20:59 40 mg HS CY Administration Enoxaparin Sodium 60 mg 03/11/25 15:45 03/11/25 16:42 Enoxaparin 100mg/Ml Syringe 1 mg/kg (60 mg) 04/10/25 15:44 60 mg SUBCUT Administration Q12H CY Finasteride 5 mg 03/11/25 21:00 03/11/25 20:41 Finasteride 5mg Tablet PO 04/10/25 20:59 5 mg HS CY Administration Haloperidol Lactate 5 mg 03/11/25 15:16 03/11/25 15:24 Haloperidol Lactate 5 Mg/Ml Vial IV 04/10/25 15:15 5 mg Q8HP PRN Administration Agitation Sodium Chloride 1,000 mls @ 100 mls/hr 03/11/25 14:00 03/11/25 14:44 Sod Chlor 0.9% 1000ml Bag IV 04/10/25 13:59 100 mls/hr .Q10H CY Administration Irbesartan 150 mg 03/11/25 14:15 03/11/25 14:43 Irbesartan 150mg Tab PO 04/10/25 14:14 150 mg DAILY CY Administration Isosorbide Mononitrate 30 mg 03/11/25 14:15 03/11/25 14:44 Isosorbide Carroll 30mg Tab.Er.24h PO 04/10/25 14:14 30 mg DAILY CY Administration Metoprolol Succinate 25 mg 03/11/25 14:15 03/11/25 14:44 Metoprolol Succinate Xl 25mg Tablet PO 04/10/25 14:14 25 mg DAILY CY Administration Morphine Sulfate 4 mg 03/11/25 13:53 03/11/25 20:40 Morphine 4mg/Ml Syringe IV 04/10/25 13:52 4 mg Q4HP PRN Administration Severe Pain (7-10) Nitroglycerin 0.4 mg 03/11/25 13:58 Nitroglycerin 0.4mg Sl Tablet SL 04/10/25 13:57 Q5MINP PRN Chest Pain Ondansetron HCl 4 mg 03/11/25 13:53 Ondansetron 4mg/2ml Vial IV 04/10/25 13:52 Q8HP PRN Nausea Oxycodone/Acetaminophen 1 each 03/11/25 14:03 Oxycodone 5mg W/Apap 325mg Tablet PO 04/10/25 14:02 Q4HP PRN Moderate Pain (4-6) Pantoprazole Sodium 40 mg 03/11/25 21:00 03/11/25 20:41 Pantoprazole 40mg Tablet PO 04/10/25 20:59 40 mg HS CY Administration Polyethylene Glycol 17 gm 03/11/25 14:15 03/11/25 14:44 Polyethylene Glycol 3350 17 Gm Packet PO 04/10/25 14:14 17 gm DAILY CY Administration Senna/Docusate Sodium 1 tab 03/11/25 14:15 03/11/25 20:40 Sennosides 8.6mg/Docusate 50mg Tablet PO 04/10/25 14:14 1 tab BID CY Administration Sodium Chloride 10 ml 03/11/25 11:33 03/11/25 11:40 Sodium Chloride 0.9% 10ml Syr (Rad Only) IV 04/10/25 11:32 10 ml NEEDED PRN Administration Maintain IV Site Sodium Chloride 10 ml 03/11/25 13:53 Sodium Chloride 0.9% 10ml Flush Syringe IV 04/10/25 13:52 NEEDED PRN Maintain IV Site Tamsulosin HCl 0.4 mg 03/11/25 21:00 03/11/25 20:40 Tamsulosin 0.4mg Capsule PO 04/10/25 20:59 0.4 mg HS CY Administration Ticagrelor 90 mg 03/11/25 14:15 03/11/25 20:40 Ticagrelor 90mg Tablet PO 04/10/25 14:14 90 mg BID CY Administration Discontinued Medications Generic Name Dose Route Start Last Admin Trade Name Freq PRN Reason Stop Dose Admin Aspirin 325 mg 03/11/25 11:45 03/11/25 12:08 Aspirin 325mg Tablet PO 03/11/25 11:46 325 mg ONCE ONE Administration Ceftriaxone Sodium 2 gm/ 100 mls @ 200 mls/hr 03/11/25 13:42 03/11/25 14:35 Sodium Chloride IV 03/11/25 14:11 Infused ONCE ONE Infusion Azithromycin 500 mg/ Sodium 250 mls @ 250 mls/hr 03/11/25 13:42 03/11/25 16:00 Chloride IV 03/11/25 13:43 Infused ONCE ONE Infusion Iopamidol 75 ml 03/11/25 11:33 03/11/25 11:40 Iopamidol-370 (76%);100ml Bottle IV 03/11/25 11:34 75 ml ONCE ONE Administration Melatonin 5 mg 03/11/25 20:45 03/11/25 20:41 Melatonin 5mg Tablet PO 03/11/25 20:46 5 mg ONCE ONE Administration Morphine Sulfate 4 mg 03/11/25 10:17 03/11/25 10:28 Morphine 4mg/Ml Syringe IV 03/11/25 10:18 4 mg ONCE ONE Administration Morphine Sulfate 4 mg 03/11/25 10:52 03/11/25 11:15 Morphine 4mg/Ml Syringe IV 03/11/25 10:53 Not Given ONCE ONE Morphine Sulfate 4 mg 03/11/25 12:31 03/11/25 12:36 Morphine 4mg/Ml Syringe IV 03/11/25 12:32 4 mg ONCE ONE Administration ORDERS Category Date Time Status CT abdomen pelvis w con Stat Cat Scan 03/11/25 10:17 Completed Cardiology Consult [Consult to Cardiology] [CONS] Cons 03/11/25 14:02 Active Routine Consult to Case Management [CONS] Routine Cons 03/11/25 13:53 Active CXR --portable [XR chest portable] Stat Exams 03/11/25 10:17 Completed BNP [NT Pro Brain Natriuretic Pep.] Stat Lab 03/11/25 10:20 Completed Basic Metabolic Panel AMLAB Lab 03/12/25 06:00 Ordered CBC w/Auto Diff [Complete Blood Count Auto Diff] Stat Lab 03/11/25 10:20 Completed CMP [Comprehensive Metabolic Panel] Stat Lab 03/11/25 10:20 Completed HIV Combo Stat Lab 03/11/25 10:20 Completed Hepatitis C Ab Qual. W/ RFX Stat Lab 03/11/25 10:20 Completed Lactic Acid Stat Lab 03/11/25 10:20 Completed Lipase Stat Lab 03/11/25 10:20 Completed Lipid Panel AMLAB Lab 03/12/25 06:00 Ordered Magnesium AMLAB Lab 03/12/25 06:00 Ordered PT INR [Prothrombin Time INR] Stat Lab 03/11/25 10:20 Completed PTT [Activated Partial Thrombo Time] Stat Lab 03/11/25 10:20 Completed Troponin I Q3H Lab 03/11/25 13:07 Completed Troponin I Q3H Lab 03/11/25 16:38 Completed Troponin I Q6H Lab 03/11/25 23:00 Ordered Troponin I Stat Lab 03/11/25 10:20 Completed UA [Urinalysis and Microscopic] Stat Lab 03/11/25 11:58 Completed Urine Culture Stat Micro 03/11/25 11:58 Received CA echo doppler complete Routine Y 03/11/25 14:02 Ordered ECG Request Routine Y 03/11/25 18:00 Ordered ECG Data Tracing #1: Attestation: I reviewed this ECG and interpreted as documented below: ECG Narrative: Normal sinus rhythm. No ST elevation or depression. QTc normal at 400. No T wave inversions MDM Narrative Medical Decision Narrative: Rod Terrazas is an 79-year-old male with a history of hypertension and Alzheimer's disease, PA status post stent, to the emergency department with family via EMS for concern for abdominal pain. Was a history is provided by daughter, who is his POA. They state that patient and his moved in with her approximately 3 weeks ago. She states that he has had significant constipation for the past 3 weeks and has only had 2 small, hard bowel movements since then. She states that he does appear somewhat scared to go to the bathroom, likely related to him being unfamiliar with her home. She states that they have been doing natural remedies at home as well as Colace x 2 without relief. She states that he often complains of abdominal pain and chest pain but it seems to be getting more frequent. She states that he is urinating normally. She denies any fevers at home. They do state that occasionally he will hold his chest and states that it hurts. She states that he has a history of a heart attack and cardiac stents. Patient is mildly confused and states that he is not in any pain currently, however he has tenderness on abdominal exam. Family states that he has not had any abdominal surgeries. On arrival, patient is hypertensive but heart rate within normal limits. Maintaining appropriate oxygen saturation on room air. He is alert and mildly confused but knows his name but not recent events. Cardiopulmonary exam is unremarkable with no wheezing, rales or rhonchi. No murmurs or rubs. Abdomen is diffusely tender with some mild guarding throughout but no peritonitis. He is mildly distended. Differential diagnosis includes, but is not limited to: Small bowel obstruction, constipation, fecal impaction, ACS, pericarditis, pneumonia, pleurisy, costochondritis, acute pancreatitis, UTI, among others. The most morbid conditions were considered and workup was based on these. Workup in the emergency department clued: CT abdomen pelvis with IV contrast, CBC with differential, CMP, lactic acid, lipase, PT/INR, PTT, troponin, EKG, chest x-ray, urinalysis. Patient symptoms were treated with 4 mg of IV morphine. EKG without evidence of ischemia. See interpretation above. Chest x-ray interpreted by me personally. No focal consolidation, no pneumothorax, no widened mediastinum, no enlargement of the cardiac silhouette. Patient does have hyperexpanded lung obando. See radiology report for details. Patient's workup showed normal white blood cell count of 7.7, normal hemoglobin, normal coagulation studies, mild hyponatremia at 134 but electrolytes otherwise within normal limits. No HEMA. Initial troponin is elevated at 0.14 and NT proBNP elevated at 798. Patient was administered 325 mg of aspirin. Liver enzymes within normal limits. Lipase normal at 22. Urinalysis without evidence of infection. I did discuss patient's case with Dr. Becker given elevated troponin and he agreed and EKG appeared nonischemic and to admit for serial troponins and echocardiogram tomorrow. I discussed this with hospitalist Dr. Chu. Patient is continuing to have some upper abdominal pain/chest pain, will administer sublingual nitroglycerin.
[2025-03-11] MEDS: MORPHINE 4MG/ML SYRINGE 4 MG IV ×3 (10:28→20:40)
--- NOTE | 2025-03-11 10:29 | ECG_ITS ---
APPROVED REPORT Exam: Resting ECG HR:63 bpm ECG Measurements Heart Rate 63 AXES MT 163 P 76 QRSd 76 QRS 76 QT 392 T 78 QTc 400 Conclusion SINUS RHYTHM MODERATE ST DEPRESSION [0.05+ mV ST DEPRESSION] ABNORMAL ECG UNCONFIRMED REPORT Electronically signed by : SARITHA TONY, 03/13/2025 06:33:22
[2025-03-11 10:53] LABS: Hematocrit 47.9 % (42.0-52.0); Hemoglobin 16.1 g/dL (14.1-18.0); Immature Granulocytes % 0.4 %; Mean Corpuscular HGB Conc 33.6 g/dL (31.8-35.4); Mean Corpuscular Hemoglobin 31.8 pg (27.0-31.2); Mean Corpuscular Volume 94.7 fl (80-94); Nucleated Red Blood Cells % 0 %; Platelet Count 354 K/mm3 (142-424); Red Blood Count 5.06 M/mm3 (4.60-6.20); Red Cell Distribution Width-SD 49.0 fL; White Blood Count 7.7 K/mm3 (4.8-10.8)
[2025-03-11 11:04] LABS: Albumin Level 4.2 g/dl (3.5-5.0); Chloride 101 mmol/L (98-107); Sodium 134 mmol/L (136-145)
[2025-03-11 11:05] LABS: Potassium 4.4 mmoL/L (3.5-5.1)
[2025-03-11 11:07] LABS: Alanine Aminotransferase 20 U/L (12-78); Albumin/Globulin Ratio 1.1 (1.1-1.8); Alkaline Phosphatase 157 U/L (38-126); Anion Gap 10.4 mEq/L (5-15); Aspartate Amino Transferase 32 U/L (17-59); Bilirubin,Total 0.7 mg/dl (0.2-1.3); Blood Urea Nitrogen 18 mg/dl (9-20); Carbon Dioxide 27 mmol/L (22.0-30.0); Creatinine Clearance Estimated 51 mL/min (50-200); Creatinine,Serum 0.90 mg/dl (0.66-1.25); Estimated Glomerular Filt Rate 81 ml/min (>60); GFR (African American) 98 ML/MIN (>60); Globulin 3.7 g/dL (1.3-3.2); Total Protein,Serum 7.9 g/dl (6.3-8.2)
[2025-03-11 11:08] LABS: Calcium 9.2 mg/dl (8.4-10.2); Glucose 111 mg/dl (74-100); Lipase 22 U/L (23-300)
[2025-03-11 11:12] LABS: Activated Partial Thrombo Time 26.0 seconds (22.8-30.6); INR 0.98 (0.9-1.1); Prothrombin Time 10.9 seconds (10.1-12.5)
[2025-03-11 11:17] LABS: NT Pro Brain Natriuretic Pep. 798 pg/mL (0-450)
[2025-03-11 11:20] LABS: Troponin I 0.14 ng/ml (0.00-0.034)
--- NOTE | 2025-03-11 11:31 | PC.NURSE ---
Patient attempted to use urinal with assistance. Unable to urinate
[2025-03-11] MEDS: IOPAMIDOL-370 (76%);100ML BOTTLE 75 ML IV (11:40)
[2025-03-11] MEDS: SODIUM CHLORIDE 0.9% 10ML SYR (RAD ONLY) 10 ML IV (11:40)
[2025-03-11 12:07] LABS: Microscopic, Urine URINE MICROSCOPIC (MICROSCOPIC)
[2025-03-11 12:08] LABS: Hepatitis C Ab Qual. W/ RFX NEGATIVE (Negative)
[2025-03-11] MEDS: ASPIRIN 325MG TABLET 325 MG PO (12:08)
[2025-03-11 13:09] LABS: Bilirubin,Urine Negative (Negative); Color,Urine YELLOW (Yellow); Glucose,Urine (UA) Negative (Negative); Ketones,Urine Negative (Negative); Leukocyte Esterase,Urine 1+ (Negative); PH,Urine 7.5 (5.0-8.5); Protein,Urine Negative (Negative); Specific Gravity, Urine 1.015 (1.005-1.030); Urobilinogen,Urine 0.2 EU/dl (0.2)
[2025-03-11 13:27] LABS: Squamous Epithelial Cell,Urine Occasional #/hpf (0-5)
[2025-03-11 13:28] LABS: Bacteria,Urine Trace /lpf
[2025-03-11 13:48] LABS: Troponin I 0.89 ng/ml (0.00-0.034)
--- NOTE | 2025-03-11 13:53 | PC.NURSE ---
repeat trop 0.89
--- NOTE | 2025-03-11 14:06 | EXP.HP ---
History of Present Illness *Admission Date: 03/11/25 *Reason for visit:: Abdominal pain *History of present illness: This is an 79-year-old male who presents to [facility] emergency department for evaluation of abdominal pain. His past medical history significant for dementia, coronary artery disease with previous stent and hypertension. History is acquired from the daughter in the ED with the patient's memory impairment. The patient is abdominal pain workup included ECG, troponin and CT abdomen and pelvis with identified constipation and 6 mm left ureteral stone. His presenting blood pressures identified hypertensive emergency with troponin leak. His presenting heart score=6. cardiology was contacted out of the ED and recommended admission. Currently no family is at bedside and the patient denies chest pain, dyspnea or palpitations. [facility] Disclaimer: The information contained in this section may have been updated after the patient was seen, as this information can be updated by other users. Medical History (Updated 03/11/25 @ 15:31 by Yaya Chu MD) Kidney stone on left side BPH (benign prostatic hyperplasia) Hypertension Alzheimer's dementia Coronary artery disease History of heart attack Surgical History History of colonoscopy History of back surgery History of coronary artery stent placement Family History Other Family history of diabetes mellitus type II Family history of myocardial infarction Social History Smoking Status: Former smoker alcohol intake: never substance use type: denies use current occupational status: retired Travel in the last 8 weeks?: None caregiver/support person: Yes household members: spouse housing: house lives independently: Yes marital status: Have you lived/traveled outside US in past 30 days?: No Contact w/someone who lives/traveled outside US past 30 days?: No Exposure to someone with infectious disease in past 14 days?: No Do you have a fever (greater than 100.4 F or 38 C)?: No Have you tested positive for COVID-19?: No Exposed to someone with COVID-19 in past 14 days?: No Do you have a sore throat?: No Do you have a cough?: No Do you have any weakness?: No Do you have any diarrhea?: No Are you experiencing any unusual bleeding?: No Do you have any muscle aches/pain?: No Do you have any abdominal pain?: Yes Are you experiencing loss of taste or smell?: No Other Medical History Have you received the Pneumonia Vaccine: No Review of Systems Review of Systems Review of systems:: unable to obtain Meds Home Medications and Allergies Home Medications ?Medication ?Instructions ?Recorded ?Confirmed ?Type aspirin 81 mg tablet,delayed 81 mg PO DAILY Blood Thinner 03/26/23 04/06/23 History release coenzyme Q10 100 mg capsule 100 mg PO DAILY Supplement 03/26/23 04/06/23 History (CoQ-10) memantine 5 mg tablet (Namenda) 5 mg PO HS memory 03/26/23 04/06/23 History New Prescriptions to Start Prescriptions: Allergies Allergy/AdvReac Type Severity Reaction Status Date / Time No Known Allergies Allergy Verified 04/06/23 11:20 Exam Data for Last 24 hours Vital signs and Labs for Last 24 Hours: Temp Pulse Resp BP Pulse Ox O2 Del Method 97.9 F 81 14 181/105 H 99 Room Air 03/11/25 10:05 03/11/25 13:46 03/11/25 10:05 03/11/25 13:46 03/11/25 13:46 03/11/25 13:46 Laboratory Results - last 24 hr 03/11/25 10:20: WBC 7.7, RBC 5.06, Hgb 16.1, Hct 47.9, MCV 94.7 H, MCH 31.8 H, MCHC 33.6, RDW 14.0, Plt Count 354, MPV 10.7 H, Neut % (Auto) 60.1, Lymph % (Auto) 26.2, Lea % (Auto) 7.6, Eos % (Auto) 4.7, Baso % (Auto) 1.0, Neut # (Auto) 4.7, Lymph # (Auto) 2.0, Lea # (Auto) 0.6, Eos # (Auto) 0.4, Baso # (Auto) 0.1, PT 10.9, INR 0.98, APTT 26.0, Sodium 134 L, Potassium 4.4, Chloride 101, Carbon Dioxide 27, Anion Gap 10.4, BUN 18, Creatinine 0.90, Estimated Creat Clear 51, Estimated GFR 81, Est GFR ( Amer) 98, Glucose 111 H, Lactate 1.5, Calcium 9.2, Total Bilirubin 0.7, AST 32, ALT 20, Alkaline Phosphatase 157 H, Troponin I 0.14 H, NT-Pro-B Natriuret Pep 798 H, Total Protein 7.9, Albumin 4.2, Globulin 3.7 H, Albumin/Globulin Ratio 1.1, Lipase 22 L, HCV Ab JC w/Rflx PCR Qn Negative, HIV Ag/Ab Combo Qual Negative 03/11/25 11:58: Urine Color Yellow, Urine Appearance Clear, Urine pH 7.5, Ur Specific [place] 1.015, Urine Protein Negative, Urine Glucose (UA) Negative, Urine Ketones Negative, Urine Blood Negative, Urine Nitrate Negative, Urine Bilirubin Negative, Urine Urobilinogen 0.2, Ur Leukocyte Esterase 1+ A, Urine RBC None, Urine WBC 3-5, Ur Squamous Epith Cells Occasional, Urine Bacteria Trace 03/11/25 13:07: Troponin I 0.89 H I & O for Last 24 hours: Intake & Output 03/08/25 03/09/25 03/10/25 03/11/25 23:59 23:59 23:59 23:59 Weight 61.235 kg Constitutional Constitutional: mild distress, thin, chronically ill appearing, disheveled and agitated *Routine HEENT Exam Head: Present normocephalic Eye: Present other ENT: Present other *Routine Respiratory Exam Respiratory: Present rhonchi, normal respiratory effort and symmetric chest movement; Absent respiratory distress *Routine Cardiovascular Exam Cardiovascular: Present RRR; Absent murmur *Routine Abdominal Exam Abdominal: Present soft and normoactive bowel sounds; Absent tenderness, distended or rebound *Routine Rectal Exam Rectal:: deferred *Routine Genitalia Exam Genitalia:: deferred *Routine Extremities Exam Extremities: Present full ROM; Absent edema *Routine Skin Exam Skin: Absent rash *Routine Neurological Exam Neurological: Present alert, altered mental status, vision grossly intact and hearing grossly intact; Absent oriented X3, sensory deficit or motor deficit Routine Psychiatric Exam Psychiatric: Present agitated Assessment and Plan *Assessment and plan (1) Hypertensive emergency: Status: Acute Category: Medical Code(s): I16.1 - Hypertensive emergency (2) Myocardial injury: Status: Acute Category: Medical Code(s): I5A - Non-ischemic myocardial injury (non-traumatic) (3) Hypertension: Status: Acute Category: Medical Code(s): I10 - Essential (primary) hypertension (4) Coronary artery disease: Status: Acute Category: Medical Code(s): I25.10 - Atherosclerotic heart disease of [place] coronary artery without angina pectoris (5) Constipation: Status: Acute Category: Medical Code(s): K59.00 - Constipation, unspecified (6) Kidney stone on left side: Status: Acute Category: Medical Code(s): N20.0 - Calculus of kidney (7) BPH (benign prostatic hyperplasia): Status: Acute Category: Medical Code(s): N40.0 - Benign prostatic hyperplasia without lower urinary tract symptoms (8) Alzheimer's dementia: Status: Acute Category: Medical Code(s): G30.9 - Alzheimer's disease, unspecified; F02.80 - Dementia in other diseases classified elsewhere, unspecified severity, without behavioral disturbance, psychotic disturbance, mood disturbance, and anxiety Plan This is an 79-year-old male that presents to the emergency department with concerns of abdominal pain and is noted to have uncontrolled blood pressures with most recent blood pressure 185/110 consistent with hypertensive emergency with troponin elevation indicating myocardial injury. Cardiology was consulted out of the ED for the patient's elevated heart score and prior history of coronary artery disease. Problems addressed as follows: Hypertensive emergency Myocardial injury type II Coronary artery disease Hypertension Telemetry monitoring Cardiology consultation Routine blood pressure monitoring ED ECG with no acute ST-T changes Trending troponins Admission proBNP 798 Trending labs and inflammatory markers Echocardiogram pending Antiplatelet therapy P2Y12 inhibitor therapy Lovenox 1 mg/kg twice daily High-dose statin therapy Beta-melba therapy ARB therapy Long-acting nitrate therapy NTG as needed Pain control Parentally administered controlled substances for comfort care Constipation Gentle IV fluid resuscitation CT A/P: Constipation identified Bowel regimen Left ureteral kidney stone Benign prostatic hypertrophy Trending electrolytes and renal function CT A/P: Left ureteral 6 mm stone Dual alpha-melba therapy Gentle IV fluid resuscitation Accurate I's and O's Pain control Alzheimer's dementia Routine nursing interaction Fall precautions Aspiration precautions Reconciling home medications Antipsychotic therapy as needed ECG with QTc monitoring The length of stay for this patient will be 2 midnights or greater due to above diagnoses.
--- NOTE | 2025-03-11 14:15 | PC.NURSE ---
Called report to Aleena An RN
[2025-03-11] MEDS: IRBESARTAN 150MG TAB 150 MG PO (14:43)
[2025-03-11] MEDS: POLYETHYLENE GLYCOL 3350 17 GM PACKET PO (14:44)
[2025-03-11] MEDS: ISOSORBIDE MONO 30MG TAB.ER.24H 30 MG PO (14:44)
[2025-03-11] MEDS: 0.9 % SODIUM CHLORIDE 1000ML 1,000 ML 100 ML IV ×2 (14:44→23:30)
[2025-03-11] MEDS: SENNOSIDES 8.6MG/DOCUSATE 50MG TABLET 1 TAB PO ×2 (14:44→20:40)
[2025-03-11] MEDS: METOPROLOL SUCCINATE XL 25MG TABLET 25 MG PO (14:44)
[2025-03-11] MEDS: AZITHROMYCIN 500 MG in 0.9 % SODIUM CHLORIDE 250 ML 250 MG IV (15:00)
[2025-03-11] MEDS: HALOPERIDOL LACTATE 5 MG/ML VIAL IV (15:24)
[2025-03-11 17:15] LABS: Troponin I 1.99 ng/ml (0.00-0.034)
--- NOTE | 2025-03-11 18:15 | PC.NURSE ---
NEW ADMIT THIS SHIFT. SINCE PT HAS ARRIVED TO THE FLOOR HE HAS ONLY BEEN ALERT TO SELF. DIFFICULTY FINDING WORDS AND FOLLOWING COMMANDS. PT MADE MULTIPLE ATTEMPTS CLIMBING OUT OF BED. YELLING FOR HIS . HALDOL 5 MG IV GIVEN. PT WAS CALM FOR ABOUT 20 MIN. AND THEN ATTEMPTED TO GET OOB AND PULLED IV OUT OF RAC. NEW IV ACCESS NOTED TO LFA. PT WOULD NOT LEAVE TELEMETRY ON. NOTIFIED PT'S DAUGHTER TO ASK IF ANYBODY COULD COME BACK TO SIT WITH PT AND SHE STATED SHE WAS WORRIED ABOUT HOW PT WOULD DO W/O FAMILY THERE WITH HIM AND STATED SHE WOULD BE BACK TO THE HOSPITAL IN JUST A FEW. WHEN DAUGHTER ARRIVED STAFF AND HER BOTH ATTEMPTED TO GET PT TO THE BATHROOM B/C HE STATED I NEED TO PEE . ATTEMPTED TO GET PT TO USE THE URINAL AT BEDSIDE HOWEVER PT INSISTED ON GOING TO THE BATHROOM. PT WAS TERRIFIED WHILE WALKING AND WAS UNABLE TO COMPREHEND HE COULD SIT DOWN ON THE TOILET. PT EVENTUALLY VOIDED 200 ML'S IN THE URINAL WITH ENCOURAGEMENT. ACCORDING TO DAUGHTER PT IS THE SAME WAY AT HOME HOWEVER IS USUALLY NOT THIS TERRIFIED. LUNG SOUNDS CLEAR. ABDOMEN SOFT/TENDER WITH HYPOACTIVE BOWEL SOUNDS . NO SWELLING NOTED TO BLE. SKIN C/D/I. WILL CONTINUE TO MONITOR.
[2025-03-11] MEDS: TAMSULOSIN 0.4MG CAPSULE 0.4 MG PO (20:40)
[2025-03-11] MEDS: ATORVASTATIN 40MG TABLET 40 MG PO (20:41)
[2025-03-11] MEDS: MELATONIN 5MG TABLET 5 MG PO (20:41)
[2025-03-11] MEDS: FINASTERIDE 5MG TABLET 5 MG PO (20:41)
[2025-03-11] MEDS: PANTOPRAZOLE 40MG TABLET 40 MG PO (20:41)
[2025-03-12] VITALS (62 sets, daily range): BP systolic 98–175; BP diastolic 67–126; PULSE 77–149; RESP 12–32; TEMP 36.6; O2SAT 94–99; BMI 19.6
[2025-03-12] MEDS: MORPHINE 4MG/ML SYRINGE 4 MG IV ×4 (00:57→15:35)
[2025-03-12 03:34] LABS: Troponin I 25.40 ng/ml (0.00-0.034)
--- NOTE | 2025-03-12 03:40 | PC.NURSE ---
Critical trop called to Jennifer KIRAN, EKG request now.
--- NOTE | 2025-03-12 03:47 | ECG_ITS ---
APPROVED REPORT Exam: Resting ECG HR:121 bpm ECG Measurements Heart Rate 121 AXES MN 148 P 72 QRSd 73 QRS 72 QT 338 T 108 QTc 410 Conclusion SINUS TACHYCARDIA NONSPECIFIC ST & T-WAVE ABNORMALITY ABNORMAL RHYTHM ECG UNCONFIRMED REPORT Electronically signed by : Priyank Vallejo MD 03/12/2025 08:36:40
[2025-03-12] MEDS: NITROGLYCERIN IN 5 % DEXTROSE 250 ML 1.5 MG IV (04:40)
--- NOTE | 2025-03-12 04:42 | PC.NURSE ---
Patient arrived to ICU unit via [facility] unit bed @04:10am
[2025-03-12] MEDS: HALOPERIDOL LACTATE 5 MG/ML VIAL IV ×2 (06:03→12:08)
--- NOTE | 2025-03-12 06:19 | PC.NURSE ---
Pt alert to person. Restless and fearful and at times combative while awake since arriving to unit. Pt HR and BP raise significantly when pt is awake and agitated. At rest pt HR 80-110, SBP 110-130. Pt nitro gtt currently running at 2.5mcg/min. PRN Morphine and haldol given for pain and agitation. Pt tolerating RA well with sat mid 90s. Pt has been incontinent of urine, brief in place. No BM during shift. Family at bedside.
--- NOTE | 2025-03-12 06:24 | PC.NURSE ---
Patient left floor with staff for ICU at 04:08.
--- NOTE | 2025-03-12 07:10 | PC.NURSE ---
Rounded on patient at this time. pt is off tire setter and pulse ox at this time. per daughter the pt was agitated and pulled them off and she asked that they not be put back on at this time so he can rest. pt is resting with eyes closed and in no obvious distress at this time. equal chest rise and fall noted and pt BP is still being assessed.
--- NOTE | 2025-03-12 07:47 | HMH.PHAINT1 ---
Pharmacy Intervention Comments: MEDICATION RECONCILIATION COMPLETED ON PATIENT USING EXTERNAL FILL HISTORY FROM PHARMACY. -ZIGGY COLVIN, GENNYD
--- NOTE | 2025-03-12 08:00 | EXP.EVENT.NO ---
Notified of critical troponin of 25.4. Increased from prior level 1.99. Twelve-lead ECG requested/obtained. Noted sinus tachycardia, nonspecific ST and T wave abnormality, quality of twelve-lead decreased due to movement of patient. Underlying dementia and agitation. Nurse reports patient was pointing to his chest and reported pain. Cardiology notified. Patient currently on full dose Lovenox-additional orders per cardiology one-time dose metoprolol 25 mg due to hypertension and tachycardia along with Nitroglycerin drip. Transferred to ICU for closer monitoring due to gtt.
[2025-03-12 08:59] LABS: Chloride 103 mmol/L (98-107); Potassium 3.6 mmoL/L (3.5-5.1); Sodium 131 mmol/L (136-145)
[2025-03-12 09:02] LABS: Anion Gap 6.6 mEq/L (5-15); Blood Urea Nitrogen 13 mg/dl (9-20); Carbon Dioxide 25 mmol/L (22.0-30.0); Creatinine Clearance Estimated 52 mL/min (50-200); Creatinine,Serum 0.80 mg/dl (0.66-1.25); Estimated Glomerular Filt Rate 93 ml/min (>60); GFR (African American) 113 ML/MIN (>60)
[2025-03-12 09:03] LABS: Calcium 8.3 mg/dl (8.4-10.2); Cholesterol 196 mg/dl (140-200); Glucose 126 mg/dl (74-100); HDL Cholesterol 55 mg/dl (40-60); Magnesium 1.6 mg/dl (1.6-2.3); Triglycerides 79 mg/dl (30-150)
--- NOTE | 2025-03-12 09:45 | PC.NURSE ---
Pt is confused and anxious when awake and is difficult to redirect. pt has difficulty following commands and wont take his morning medications at this time. Hospitalist and emergency medicine nurse practitioner aware
--- NOTE | 2025-03-12 11:10 | P.PN_ITS ---
Subjective *Date: 03/12/25 *Time: 11:10 Interval history: The patient is seen and evaluated at bedside with Tash ICU nurse at bedside. The patient is accompanied by his . Nursing staff report that he remains afebrile with stable oxygen saturations, normal respiratory rates, improved heart rates and some low blood pressures. He is tolerating his IV nitroglycerin with no adverse events. He is tolerating his Lovenox therapy with no unusual bruising bleeding or reported headaches. He is saturating appropriately on room air. A poor prognosis has been identified. Cardiology has recommended against procedural intervention. A goals of care conversation occurred at bedside today. /family is interested in hospice consultation. Exam Data for Last 24 hours Vital signs and Labs for Last 24 Hours: Temp Pulse Resp BP Pulse Ox O2 Del Method 97.9 F 92 H 17 148/84 H 97 Room Air 03/12/25 04:44 03/12/25 10:00 03/12/25 10:00 03/12/25 10:00 03/12/25 10:00 03/12/25 09:00 Laboratory Results - last 24 hr 03/11/25 10:20: PT 10.9, INR 0.98, APTT 26.0, Sodium 134 L, Potassium 4.4, Chl oride 101, Carbon Dioxide 27, Anion Gap 10.4, BUN 18, Creatinine 0.90, Estimated Creat Clear 51, Estimated GFR 81, Est GFR ( Amer) 98, Glucose 111 H, Lactate 1.5, Calcium 9.2, Total Bilirubin 0.7, AST 32, ALT 20, Alkaline Phosphatase 157 H, Troponin I 0.14 H, NT-Pro-B Natriuret Pep 798 H, Total Prote in 7.9, Albumin 4.2, Globulin 3.7 H, Albumin/Globulin Ratio 1.1, Lipase 22 L, HCV Ab JC w/Rflx PCR Qn Negative, HIV Ag/Ab Combo Qual Negative 03/11/25 11:58: Urine Color Yellow, Urine Appearance Clear, Urine pH 7.5, Ur Specific [place] 1.015, Urine Protein Negative, Urine Glucose (UA) Negative, Urine Ketones Negative, Urine Blood Negative, Urine Nitrate Negative, Urine Bilirubin Negative, Urine Urobilinogen 0.2, Ur Leukocyte Esterase 1+ A, Urine RBC None, Urine WBC 3-5, Ur Squamous Epith Cells Occasional, Urine Bacteria Trace 03/11/25 13:07: Troponin I 0.89 H 03/11/25 16:38: Troponin I 1.99 H 03/12/25 02:38: Troponin I 25.40 H 03/12/25 08:45: Sodium 131 L, Potassium 3.6, Chloride 103, Carbon Dioxide 25, Anion Gap 6.6, BUN 13 D, Creatinine 0.80, Estimated Creat Clear 52, Estimated GFR 93, Est GFR ( Amer) 113, Glucose 126 H, Calcium 8.3 L, Magnesium 1.6, Triglycerides 79, Cholesterol 196, LDL Cholesterol Direct 101.10, VLDL Cholesterol 16, HDL Cholesterol 55, Cholesterol/HDL Ratio 3.6 H I & O for Last 24 hours: Intake & Output 03/09/25 03/10/25 03/11/25 03/12/25 23:59 23:59 23:59 23:59 Intake Total 1346.667 / 1526.667 180.825 / 180.825 Output Total 400 / 400 0 / 0 Balance 946.667 / 1126.667 180.825 / 180.825 Weight 60.441 kg 62.369 kg Constitutional Constitutional: no acute distress, chronically ill appearing and cooperative *Routine Respiratory Exam Respiratory: Present rhonchi, normal respiratory effort and symmetric chest movement; Absent respiratory distress *Routine Cardiovascular Exam Cardiovascular: Present RRR; Absent murmur *Routine Extremities Exam Extremities: Absent edema *Routine Skin Exam Skin: Absent rash *Routine Neurological Exam Neurological: Present alert and moving all extremities; Absent oriented X3, sensory deficit or motor deficit Routine Psychiatric Exam Psychiatric: Present cooperative Assessment and Plan *Assessment and plan (1) Hypertensive emergency: Status: Acute Category: Medical Code(s): I16.1 - Hypertensive emergency (2) Myocardial injury: Status: Acute Category: Medical Code(s): I5A - Non-ischemic myocardial injury (non-traumatic) (3) Hypertension: Status: Acute Category: Medical Code(s): I10 - Essential (primary) hypertension (4) Coronary artery disease: Status: Acute Category: Medical Code(s): I25.10 - Atherosclerotic heart disease of [place] coronary artery without angina pectoris (5) Constipation: Status: Acute Category: Medical Code(s): K59.00 - Constipation, unspecified (6) Kidney stone on left side: Status: Acute Category: Medical Code(s): N20.0 - Calculus of kidney (7) BPH (benign prostatic hyperplasia): Status: Acute Category: Medical Code(s): N40.0 - Benign prostatic hyperplasia without lower urinary tract symptoms (8) Alzheimer's dementia: Status: Acute Category: Medical Code(s): G30.9 - Alzheimer's disease, unspecified; F02.80 - Dementia in other diseases classified elsewhere, unspecified severity, without behavioral disturbance, psychotic disturbance, mood disturbance, and anxiety Plan This is an 79-year-old male that presents to the emergency department with concerns of abdominal pain and is noted to have uncontrolled blood pressures with most recent blood pressure 185/110 consistent with hypertensive emergency with troponin elevation indicating myocardial injury. Cardiology was consulted out of the ED for the patient's elevated heart score and prior history of coronary artery disease. Problems addressed as follows: Hypertensive emergency NSTEMI Coronary artery disease Hypertension Transferred from medical floor to ICU (03/12/2025) ICU care with ongoing telemetry and pulse oximetry monitoring Cardiology consultation pending Routine blood pressure monitoring ED ECG with no acute ST-T changes Elevated troponin trend reviewed Admission proBNP 798 Trending labs and inflammatory markers Echocardiogram pending Antiplatelet therapy P2Y12 inhibitor therapy Lovenox 1 mg/kg twice daily IV nitroglycerin therapy High-dose statin therapy Beta-melba therapy ARB therapy Long-acting nitrate therapy Pain control Parentally administered controlled substances for comfort care Constipation Gentle IV fluid resuscitation CT A/P: Constipation identified Bowel regimen Left ureteral kidney stone Benign prostatic hypertrophy Trending electrolytes and renal function CT A/P: Left ureteral 6 mm stone Dual alpha-melba therapy Gentle IV fluid resuscitation Accurate I's and O's Pain control Alzheimer's dementia Routine nursing interaction Fall precautions Aspiration precautions Reconciling home medications Antipsychotic therapy as needed ECG with QTc monitoring The patient is hospitalized day 1 with above diagnoses complicated by his memory impairment. Cardiology has recommended against procedural intervention. A poor prognosis is identified with ongoing goals of care conversation with at bedside. We have discussed hospice consultation and is amendable. Case management is assisting with discharge needs. Barriers to discharge currently include ongoing goals of care conversation and family decision making. Expected day of discharge cannot be determined at present time.
[2025-03-12] MEDS: 0.9 % SODIUM CHLORIDE 1000ML 1,000 ML 100 ML IV ×2 (11:17→21:12)
--- NOTE | 2025-03-12 11:44 | SW/DCPLANNER ---
Addendum entered by Zaida Gibbons 03/13/25 11:24: Per MD patient is medically stable for discharge today w/ Hospice. After a legnthy discussion w/ daughter, and MD the plan is for patient to return home w/ Hospice services due to placement being unsuccessful. Daughter is fine w/ patient returning pending equipment is set up in the home and Hospice can admit once returning home. I have spoke w/ Ada at Hospice and she will reach out to daughter now regarding equipment needed. Ada is aware that patient could discharge today. Daughter (Mary) [phone] Addendum entered by Zaida Gibbons 03/13/25 09:06: [facility] do not have a locked unit. I have left a VM w/ the following facilities: [facility] in [place], [facility] in [place] and [facility] in [place]. Information has been faxed to Juan Pablo Bourgeois ([facility] fax [phone]) and [facility] ([place] fax [phone]). Addendum entered by Zaida Gibbons 03/13/25 08:16: The following facilities are not able to accept this patient due to no locked unit/not able to meet needs: [facility], [facility], [facility], [facility], [facility], [facility], [facility], [facility], [facility], [facility]. [place] and [facility] are currently full (I will advise family to reach out for wait list). Addendum entered by Zaida Gibbons 03/13/25 08:15: I have reached out to Luba Vega regarding Medicaid application for this patient at family request. Addendum entered by Zaida Gibbons 03/12/25 15:07: I spoke w/ patients and family this afternoon regarding discharge planning. Family is interested in LTC w/ Hospice services. Family is also interested in completing a JAS application and I will reach out to Nadia. I explained to patient's family that if placement could not be obtained (JAS pending, Hospice, behaviors including being physical) returning home w/ private sitters and Hospice may be the only option. Patient's family expressed [facility]. I spoke w/ a Area Supervisor at [facility] that stated that patient does not have a LTC benefit. I will begin working on placement and reaching out to facilities regarding placement for this patient. CM will continue to follow up. Addendum entered by Zaida Gibbons 03/12/25 12:56: Family has requested a Hospice nurse at bedside today at 2PM. I have relayed information to Ada jorgensen/ [facility]. Original Note: Per MD request patient information has been faxed to [facility] and family is agreeable. Family has stepped away to go home and rest but will return this afternoon.
--- NOTE | 2025-03-12 13:44 | DIET.NUTRFU ---
Changed diet to regular based on food preferences, age and lack on intake. Also added supplements to help meet needs
--- NOTE | 2025-03-12 14:02 | CA_ITS ---
APPROVED REPORT EXAM: Limited 2D Echocardiogram Air Quality Specialist: Jennifer Becker CRT Ht: 5 ft 10 in Wt: 135lbs BSA: 1.77 BP: 181/105 mmHg Indications: NSTEMI, CAD, STENT, Alzheimer's, HTN Limited images due to inability to cooperate. Pt had to be held down by daughter for images. Limited exam LV Diastology E Decel Time 213 (160-240 msec) E/A Ratio 0.96 Aortic Valve AO Peak GR. 7.60 mmHg Mitral Valve MV A Velocity 61.0 (40-130 cm/s) E/A Ratio 0.96 Tricuspid Valve TR P. Velocity 154.00 cm/s RAP Estimate 10.00 mmHg RVSP 19.50 mmHg Left Ventricle The left ventricle is normal size. Left ventricular systolic function is normal. The left ventricular ejection fraction is within the normal range. There is increased left ventricular wall thickness. There is normal LV segmental wall motion. The left ventricular diastolic function is indeterminate. LVEF is 65%. Right Ventricle The right ventricle is normal size. The right ventricular systolic function is normal. Atria The left atrium size is normal. The right atrium is not well-visualized. There is no color Doppler evidence of interatrial shunt. Aortic Valve The aortic valve is mildly thickened. There is no hemodynamically significant aortic valvular stenosis. No aortic regurgitation is present. Mitral Valve The mitral valve is normal in structure. No evidence of mitral valve stenosis. Trace mitral regurgitation is present. Tricuspid Valve The tricuspid valve leaflets are thin and pliable. Trace tricuspid regurgitation. There is insufficient TR jet to estimate RVSP. Pulmonic Valve The pulmonary valve is not well-visualized. Great Vessels The aortic root is normal in size. IVC is normal in size and collapses >50% with inspiration. Pericardium There is no pericardial effusion. Other Information Study Quality: Technically Difficult Conclusion Normal biventricular systolic function. No significant valvular stenosis or regurgitation. Electronically signed by : Kisha Tello MD 03/12/2025 12:10:03
--- NOTE | 2025-03-12 14:18 | EXP.CARD.CON ---
History of Present Illness History of Present Illness Consult date: 03/12/25 Chief complaint: abdominal pain History of present illness: 79-year-old white male with history of CAD status post stenting years ago-we are data deficient on specifics of this. Patient unfortunately has advancing dementia for the past several years and has been nonverbal and violent for the past 8 to 9 months. His is with him bedside and is his permanent caregiver. She states he does not speak and if frustrated he will throw and break things or punch and hit. As best she could determine he was having abdominal pain on day of admission and he was brought to the emergency room where he was found to have elevated troponin at 1.9. He was admitted for observation and troponin peaked at 25 which is why we are consulted. EKG shows sinus rhythm without acute ischemic changes. 2D echo shows normal BiV systolic function and no significant valve stenosis or regurgitation. Patient is combative in the room, pulling off leads, refusing medication. He is on IV Haldol. [facility] Disclaimer: The information contained in this section may have been updated after the patient was seen, as this information can be updated by other users. Medical History Kidney stone on left side BPH (benign prostatic hyperplasia) Hypertension Alzheimer's dementia Coronary artery disease History of heart attack Surgical History History of colonoscopy History of back surgery History of coronary artery stent placement Family History Other Family history of diabetes mellitus type II Family history of myocardial infarction Social History Smoking Status: Former smoker alcohol intake: never substance use type: denies use current occupational status: retired Travel in the last 8 weeks?: None caregiver/support person: Yes household members: spouse housing: house lives independently: Yes marital status: Have you lived/traveled outside [place] in past 30 days?: No Contact w/someone who lives/traveled outside US past 30 days?: No Exposure to someone with infectious disease in past 14 days?: No Do you have a fever (greater than 100.4 F or 38 C)?: No Have you tested positive for COVID-19?: No Exposed to someone with COVID-19 in past 14 days?: No Do you have a sore throat?: No Do you have a cough?: No Do you have any weakness?: No Do you have any diarrhea?: No Are you experiencing any unusual bleeding?: No Do you have any muscle aches/pain?: No Do you have any abdominal pain?: Yes Are you experiencing loss of taste or smell?: No Review of Systems Review of Systems Review of systems:: unable to obtain Exam Constitutional Constitutional: moderate distress and agitated Comments: non-verbal, unresponsive to instruction/conversation *Routine HEENT Exam Eye: Present PERRL *Routine Respiratory Exam Respiratory: Present CTA bilaterally; Absent accessory muscle use, wheezes or crackles *Routine Cardiovascular Exam Cardiovascular: Present RRR, Normal S1 and Normal S2; Absent murmur, gallop or rubs *Routine Abdominal Exam Abdominal: Present soft; Absent tenderness *Routine Extremities Exam Extremities: Present pulses intact; Absent cyanosis or edema *Routine Skin Exam Skin: Present intact; Absent erythema or wounds *Routine Neurological Exam Neurological: Present alert, altered mental status and moving all extremities; Absent oriented X3 or normal speech Routine Psychiatric Exam Psychiatric: Present cooperative Meds Home Medications and Allergies Home Medications ?Medication ?Instructions ?Recorded ?Confirmed ?Type albuterol sulfate 90 mcg/actuation 2 inh inhalation Q6HP PRN 03/12/25 03/12/25 History aerosol inhaler Shortness Of Breath quetiapine 25 mg tablet 25 mg PO BIDP PRN Anxiety 03/12/25 03/12/25 History tamsulosin 0.4 mg capsule 0.4 mg PO DAILY 03/12/25 03/12/25 History New Prescriptions to Start Prescriptions: Allergies Allergy/AdvReac Type Severity Reaction Status Date / Time No Known Allergies Allergy Verified 04/06/23 11:20 Assessment and Plan *Assessment and plan (1) NSTEMI (non-ST elevated myocardial infarction): Status: Acute Category: Medical Code(s): I21.4 - Non-ST elevation (NSTEMI) myocardial infarction (2) Coronary artery disease: Status: Acute Category: Medical Code(s): I25.10 - Atherosclerotic heart disease of [place] coronary artery without angina pectoris (3) Alzheimer's dementia: Status: Acute Category: Medical Code(s): G30.9 - Alzheimer's disease, unspecified; F02.80 - Dementia in other diseases classified elsewhere, unspecified severity, without behavioral disturbance, psychotic disturbance, mood disturbance, and anxiety Plan CAD with NSTEMI - Trop up from 1.9 to 25 - known CAD with stents years ago per , details unclear - unable to assess symptoms due to pt mental status - EKG shows no ST changes - ECHO shows normal Bi-V function - Patient is not a candidate for procedural intervention as he is noncompliant with oral meds. Noncompliance with DAPT following a stent could result in stent thrombosis, [place], . This was discussed with in detail which she is agreeable. - continue ASA when possible Advanced Dementia - violent/non-verbal for 8-9 months - palliative/EOL discussion pending with Hospitalist No further CV workup warranted at this time. Please advise if further concerns this admission, thank you.
--- NOTE | 2025-03-12 14:20 | PC.NURSE ---
AD hospice nurse at bedside at this time
--- NOTE | 2025-03-12 14:30 | PC.NURSE ---
Pt family stated they want to look into [facility] benefits and hospice care for placement. HWeSKYE cheney notified and at pt bedside for evaluation
--- NOTE | 2025-03-12 16:26 | EXP.EVENT.NO ---
I received communication from nursing staff that the family has met with farm service consultant and elected to transition the patient's care to hospice. They would like to change his CODE STATUS to DNR/DNI. They are inquiring about comfort care medications. Comfort care orders including CODE STATUS update have been entered.
[2025-03-12] MEDS: HALOPERIDOL LACTATE 5 MG/ML VIAL 10 MG IV ×2 (19:23→23:20)
--- NOTE | 2025-03-12 21:14 | PC.NURSE ---
Pt refusing PO meds at this time
[2025-03-13] VITALS (17 sets, daily range): BP systolic 96–124; BP diastolic 60–102; PULSE 78–134; RESP 11–29; TEMP 37–37.9; O2SAT 91–96; BMI 19.8
[2025-03-13] MEDS: MORPHINE 4MG/ML SYRINGE 4 MG IV ×5 (01:12→16:18)
[2025-03-13] MEDS: HALOPERIDOL LACTATE 5 MG/ML VIAL 10 MG IV ×2 (04:01→10:58)
[2025-03-13] MEDS: 0.9 % SODIUM CHLORIDE 1000ML 1,000 ML 100 ML IV (07:20)
[2025-03-13 08:49] LABS: Thyroid Stimulating Hormone 1.84 uIU/mL (0.465-4.68)
--- NOTE | 2025-03-13 09:05 | PC.NURSE ---
Primary RN notified of magnesium level this morning and also notified of patient unable to take medications at this time. No new orders received. Continuation of care plan.
[2025-03-13 09:08] LABS: Vitamin B12 285 pg/mL (239-931)
[2025-03-13] MEDS: 0.9 % SODIUM CHLORIDE 1000ML 1,000 ML 80 ML IV (09:20)
[2025-03-13 09:46] LABS: Folate 5.67 ng/mL
--- NOTE | 2025-03-13 12:50 | P.DS_ITS ---
General Admission date:: 03/11/25 HPI HPI HPI: This is an 79-year-old male who presents to [facility] emergency department for evaluation of abdominal pain. His past medical history significant for dementia, coronary artery disease with previous stent and hypertension. History is acquired from the daughter in the ED with the patient's memory impairment. The patient is abdominal pain workup included ECG, troponin and CT abdomen and pelvis with identified constipation and 6 mm left ureteral stone. His presenting blood pressures identified hypertensive emergency with troponin leak. His presenting heart score=6. cardiology was contacted out of the ED and recommended admission. Currently no family is at bedside and the patient denies chest pain, dyspnea or palpitations. Hospital Course Hospital Course Hospital Course: This is an 79-year-old male that presents to the emergency department with concerns of abdominal pain and is noted to have uncontrolled blood pressures with most recent blood pressure 185/110 consistent with hypertensive emergency with troponin elevation indicating myocardial injury. Cardiology was consulted out of the ED for the patient's elevated heart score and prior history of coronary artery disease. Problems addressed as follows: Hypertensive emergency NSTEMI Coronary artery disease Hypertension #Alzheimer's dementia ? Patient presented chest/abdominal pain and hypertensive emergency with NSTEMI, started on nitroglycerin drip with improvement in symptoms. ? Troponin peaked at highest 25, EKG without STEMI. Weaned off nitroglycerin drip without further symptoms of chest pain, shortness of breath. ? Cardiology was consulted, patient unfortunately reports good for coronary revascularization due to poor medication adherence and advancing Alzheimer's dementia with significant behavioral disturbances. at bedside wanted to pursue hospice care and was accepted to home with hospice. ? Discharged with aspirin 81 mg, Imdur 30 mg, metoprolol succinate 25 mg. #Community-acquired pneumonia ? CXR suggestive of pneumonia with fever of 100.3. Discussed with family, they prefer to take patient home on hospice with oral antibiotics. Given IV levofloxacin, discharged with levofloxacin 750 mg daily for 6 more days. Left ureteral kidney stone Benign prostatic hypertrophy Trending electrolytes and renal function CT A/P: Left ureteral 6 mm stone ?Continue home tamsulosin. Exam Data for Last 24 hours Vital signs and Labs for Last 24 Hours: Temp Pulse Resp BP Pulse Ox O2 Del Method 98.6 F 100 H 13 97/60 L 91 L Room Air 03/13/25 11:51 03/13/25 12:00 03/13/25 12:00 03/13/25 12:00 03/13/25 12:00 03/13/25 12:00 Laboratory Results - last 24 hr 03/13/25 07:45: Vitamin B12 285, Folate 5.67, TSH 1.84 I & O for Last 24 hours: Intake & Output 03/10/25 03/11/25 03/12/25 03/13/25 23:59 23:59 23:59 23:59 Intake Total 1346.667 / 6679.392 6543.742 / 2212.742 1200.988 / 1200.988 Output Total 400 / 400 1750 / 1750 375 / 375 Balance 946.667 / 1126.667 462.742 / 462.742 825.988 / 825.988 Weight 60.441 kg 62.369 kg 62.868 kg Microbiology Reports for the Last 24 Hours: Microbiology 03/11/25 11:58 Urine,Clean Catch Urine Culture - Final No growth. Constitutional Constitutional: moderate distress and agitated Comments: non-verbal, unresponsive to instruction/conversation *Routine HEENT Exam Eye: Present PERRL *Routine Respiratory Exam Respiratory: Present CTA bilaterally; Absent accessory muscle use, wheezes or crackles *Routine Cardiovascular Exam Cardiovascular: Present RRR, Normal S1 and Normal S2; Absent murmur, gallop or rubs *Routine Abdominal Exam Abdominal: Present soft; Absent tenderness *Routine Extremities Exam Extremities: Present pulses intact; Absent cyanosis or edema *Routine Skin Exam Skin: Present intact; Absent erythema or wounds *Routine Neurological Exam Neurological: Present alert, altered mental status and moving all extremities; Absent oriented X3 or normal speech Routine Psychiatric Exam Psychiatric: Present cooperative Results Data Completed and Pending Labs on day of discharge: Labs from last 24 hours 03/13/25 07:45 Vitamin B12 285 Folate 5.67 TSH 1.84 DS: Diagnosis Discharge Diagnosis (1) NSTEMI (non-ST elevated myocardial infarction): Status: Acute Code(s): I21.4 - Non-ST elevation (NSTEMI) myocardial infarction (2) Coronary artery disease: Status: Acute Code(s): I25.10 - Atherosclerotic heart disease of [place] coronary artery without angina pectoris (3) Alzheimer's dementia: Status: Acute Code(s): G30.9 - Alzheimer's disease, unspecified; F02.80 - Dementia in other diseases classified elsewhere, unspecified severity, without behavioral disturbance, psychotic disturbance, mood disturbance, and anxiety Meds Home Medications and Allergies Home Medications ?Medication ?Instructions ?Recorded ?Confirmed ?Type albuterol sulfate 90 mcg/actuation 2 inh inhalation Q6 HP PRN 03/12/25 03/12/25 History aerosol inhaler Shortness Of Breath tamsulosin 0.4 mg capsule 0.4 mg PO DAILY 03/12/25 History aspirin 81 mg chewable tablet 81 mg PO DAILY 30 days # 30 tabs 03/13/25 Rx isosorbide mononitrate 30 mg 30 mg PO DAILY 30 days #3 0 tabs 03/13/25 Rx tablet,extended release 24 hr levofloxacin 750 mg tablet 750 mg PO DAILY 6 days #6 t abs 03/13/25 Rx metoprolol succinate 25 mg 25 mg PO DAILY 30 days #30 tabs 03/13/25 Rx tablet,extended release 24 hr olanzapine 5 mg tablet 5 mg PO BIDP PRN agitation # 30 tabs 03/13/25 Rx New Prescriptions to Start Prescriptions: aspirin Pablo,Jimmie isosorbide mononitrate Pablo,Jimmie levofloxacin Pablo,Jimmie metoprolol succinate Pablo,Jimmie olanzapine Pablo,Jimmie Allergies Allergy/AdvReac Type Severity Reaction Status Date / Time No Known Allergies Allergy Verified 04/06/23 11:20 Discharge Plan Disposition Patient Disposition: Hospice - Home Condition: Other Discharge Order Discharge Orders: Discharge Order (Routine); Ordered 03/13/25 Ordered By: Jimmie Shah Follow up Plan Prescriptions/Medication Reconciliation: New isosorbide mononitrate 30 mg Tablet Extended Release 24 Hr 30 mg PO DAILY 30 Days Qty: 30 0RF aspirin 81 mg Tablet,Chewable 81 mg PO DAILY 30 Days Qty: 30 0RF metoprolol succinate 25 mg Tablet Extended Release 24 Hr 25 mg PO DAILY 30 Days Qty: 30 0RF olanzapine 5 mg tablet 5 mg PO BIDP PRN (Reason: agitation) Qty: 30 0RF levofloxacin 750 mg tablet 750 mg PO DAILY 6 Days Qty: 6 0RF Continued tamsulosin 0.4 mg capsule 0.4 mg PO DAILY Patient Comments: TAKE 1 CAPSULE BY MOUTH DAILY albuterol sulfate 90 mcg/actuation HFA aerosol inhaler 2 inh INHALATION Q6HP PRN (Reason: Shortness Of Breath) Patient Comments: INHALE 2 INHALATIONS EVERY 6 HOURS Discontinued quetiapine 25 mg tablet 25 mg PO BIDP PRN (Reason: Anxiety) Patient Comments: TAKE 1 TABLET BY MOUTH IN THE MORNING AND AT NOON NEEDED Problem Reconciliation Problems Reviewed?: Yes Patient Discharge Instructions Patient Instructions: Acute Coronary Syndrome, DI for Chest Pain, Advanced Alzheimer Dementia Print Language: [place] Providers Primary Care Provider: Priyank Vallejo Admit Provider: Andrea Asencio Attending Provider: Andrea Asencio
--- NOTE | 2025-03-13 16:28 | XR_ITS ---
PROCEDURE INFORMATION: Exam: XR Chest Exam date and time: 03/13/2025 4:42 PM Age: 79 years old Clinical indication: Fever; Additional info: Fevers, encephalopathy TECHNIQUE: Imaging protocol: Radiologic exam of the chest. Views: 1 view. COMPARISON: CR (CHEST, CXR AP LANDSCAPE) 03/11/2025 11:37 AM FINDINGS: Lungs: Patchy left retrocardiac consolidation. Pleural spaces: Unremarkable. No pleural effusion. No pneumothorax. Heart/Mediastinum: Unremarkable. No cardiomegaly. Vasculature: Slightly tortuous aorta with a calcified aortic knob. Bones/joints: Unremarkable. IMPRESSION: Patchy left retrocardiac consolidation. Suspicious for infectious pneumonia.
--- NOTE | 2025-03-13 16:29 | PC.NURSE ---
Patients axillary temperature of 100.3. Patients heart rate ranging of 110-120's. Patient asymptomatic. Jimmie Shah notified. New orders received. Continuation of care plan.
[2025-03-13 16:39] LABS: Adenovirus,PCR Not Detected (NotDetected); Chlamydophila Pneumoniae, PCR Not Detected (NotDetected); Coronavirus 19, PCR Not Detected (NotDetected); Coronovirus HKU1,PCR Not Detected (NotDetected); Influenza A, PCR Not Detected (NotDetected); Influenza AH1, 2009 Not Detected (NotDetected); Influenza AH1, PCR Not Detected (NotDetected); Influenza AH3,PCR Not Detected (NotDetected); Influenza B, PCR Not Detected (NotDetected); Mycoplasma Pneumoniae, PCR Not Detected (NotDetected); Parainfluenza 1, PCR Not Detected (NotDetected); Parainfluenza 2, PCR Not Detected (NotDetected); Parainfluenza 3, PCR Not Detected (NotDetected); Parainfluenza 4, PCR Not Detected (NotDetected)
[2025-03-13] MEDS: ACETAMINOPHEN 1,000 MG/100 ML ML 400 MG IV (16:52)
--- NOTE | 2025-03-13 18:49 | PC.NURSE ---
Patients Mary DOUGLASS, educated on discharge instructions. POA verbalizes understanding. IV catheters removed. Patient discharged home with EMS at this time.
--- NOTE | 2025-03-13 19:30 | PC.NURSE ---
Voicemail left for [facility] navigators to notify of patients discharge.
== END 2025-03-13 18:49 | disposition hospice, home (50) | DRG 280 ==
LOC: ER 10:48 → 2ND 14:06 → ICU 03-12 12:52
PROVIDERS: Family Medicine; Student in an Organized Health Care Education/Training Program; Admitting Provider Internal Medicine Adolescent Medicine; Emergency Provider Student in an Organized Health Care Education/Training Program; PCP Internal Medicine Adolescent Medicine; Visit Provider Internal Medicine Adolescent Medicine
DX: I16.1 Hypertensive emergency (principal); J18.9 Pneumonia, unspecified organism; I21.4 Non-ST elevation (NSTEMI) myocardial infarction; F02.811 Dementia in other diseases classified elsewhere, unspecified severity, with agitation; N20.1 Calculus of ureter; I10 Essential (primary) hypertension; I25.10 Atherosclerotic heart disease of native coronary artery without angina pectoris; K59.00 Constipation, unspecified; N40.0 Benign prostatic hyperplasia without lower urinary tract symptoms; G30.9 Alzheimer's disease, unspecified; I25.2 Old myocardial infarction; R00.0 Tachycardia, unspecified; Z91.148 Patient's other noncompliance with medication regimen for other reason; Z66 Do not resuscitate; Z51.5 Encounter for palliative care; Z87.891 Personal history of nicotine dependence; Z95.5 Presence of coronary angioplasty implant and graft; Z79.82 Long term (current) use of aspirin; Z79.899 Other long term (current) drug therapy
CPT/HCPCS: 0223U; 36415; 71045; 74177; 80048; 80053; 80061; 81001; 82607; 82746; 83605; 83690; 83735; 83880; 84443; 84484; 85025; 85610; 85730; 86803; 87086; 87389; 93005; 93306; 93308; 99285; J0131; J0456; J0696; J1450; J1630; J1650; J2270; J7030; J7050; Q9967